=== PATIENT | female | born 1980 | race Caucasian/White ===

== ENCOUNTER 2016-11-01 17:11 | Emergency (ER) | payer OTHER ==
[2016-11-01 17:20] VITALS: BP 151/96; PULSE 57; TEMP 97.9; BMI 48.6
[2016-11-01] MEDS ORDERED: ONDANSETRON *ODT* 4 MG TABLET SL ONE (20:28)
--- NOTE | 2016-11-01 20:29 | PDOC ---
History of Present Illness - General Chief Complaint: Pain Stated Complaint: NOT FEELING WELL/preg/change in bp meds Time Seen by Provider: 11/01/16 19:33 - History of Present Illness Initial Comments: 11/01/16 20:24 CHIEF COMPLAINT: "don't feel well" HISTORY OF PRESENT ILLNESS: 35 year old F with history of HTN presents to ED with dizziness, nausea, sore throat, and discomfort to right ear. Patient states she was seen 2 days ago at [facility] and was just recently told she was . Patient is unsure when her last menstrual period was, he states "I skip all the time I think it was at the end of June" and she is unsure how many weeks she is . She states that she was told she was getting a blood test to tell her how many weeks along she was but she never found out after being discharged from [facility] patient states that her feet have been swollen, and notes that she was previously prescribed lisinopril and hydrochlorothiazide but after finding out she was medication was switched to labetalol. Since then her feet have felt more swollen she has felt more dizzy and nauseous. She denies any vomiting, diarrhea, fever or chills. PAST MEDICAL HISTORY: HTN FAMILY HISTORY: Denies SOCIAL HISTORY: Current smoker, 10 cigs daily. Denies alcohol, illicit drug use. SURGICAL HISTORY: 2 C-sections ALLERGIES: No known drug allergies REVIEW OF SYSTEMS General/Constitutional: Denies fever or chills. Denies weakness, weight change. HEENT: Denies change in vision. Denies ear pain or discharge. Denies sore throat. Cardiovascular: Denies chest pain or shortness of breath. Respiratory: Denies cough, wheezing, or hemoptysis. Gastrointestinal: Nausea. Denies vomiting, diarrhea or constipation. Denies rectal bleeding. Genitourinary: Denies dysuria, frequency, or change in urination. Musculoskeletal: Denies joint or muscle swelling or pain. Denies neck or back pain. Skin and breasts: Denies rash or easy bruising. Neurologic: Dizziness. Denies headache, vertigo, loss of consciousness, or loss of sensation. PHYSICAL EXAM General Appearance: Well-appearing, appropriately dressed. No apparent distress , no intoxication. HEENT: EOMI, PERRLA, normal ENT inspection, normal voice, TMs normal, pharynx normal. No conjunctival pallor. No photophobia, scleral icterus. Neck: Supple. Trachea midline. No tenderness, rigidity, carotid bruit, stridor , lymphadenopathy, or thyromegaly. Respiratory/Chest: Lungs CTAB. No shortness of breath, chest tenderness, respiratory distress, accessory muscle use. No crackles, rales, rhonchi, stridor , wheezing, dullness Cardiovascular: RRR. S1, S2. No JVD, murmur, bradycardia, tachycardia. Vascular Pulses: Dorsalis-Pedis (R): 2+, Dorsalis-Pedis (L): 2+ Gastrointestinal/Abdominal: Normal bowel sounds. Abdomen soft, non-distended. No tenderness or rebound tenderness. No organomegaly, pulsatile mass, guarding , hernia, hepatomegaly, splenomegaly. Lymphatic: No adenopathy, tenderness. Musculoskeletal/Extremities: Normal inspection. FROM of all extremities, normal capillary refill. Pelvis Stable. No CVA tenderness. No tenderness to extremities, pedal edema, swelling, erythema or deformity. Integumentary: Appropriate color, dry, warm. No cyanosis, erythema, jaundice or rash Neurologic: mooner II-XII intact. Fully oriented, alert. Appropriate mood/affect. Motor strength 5/5. No appreciable EOM palsy, facial droop or sensory deficit. 11/03/16 04:02 Past History - Past Medical History Allergies/Adverse Reactions: Allergies Allergy/AdvReac Type Severity Reaction Status Date / Time No Known Allergies Allergy Verified 11/01/16 17:15 Home Medications: Ambulatory Orders Ibuprofen [Motrin -] 600 mg PO TID #21 tablet 03/17/15 Lisinopril/Hydrochlorothiazide [Lisinopril-Hctz 10-12.5 mg Tab] 1 each PO DAILY 03/17/15 Ondansetron [Zofran Odt -] 4 mg SL TID PRN #21 od.tablet 11/01/16 GI Disorders: Yes (ACID REFLUX) HTN: Yes - Surgical History Cardiac Surgery: Yes - Psycho/Social/Smoking Cessation Hx Anxiety: Yes Suicidal Ideation: No Smoking History: Current every day smoker Have you smoked in the past 12 months: Yes Number of Cigarettes Smoked Daily: 10 Information on smoking cessation initiated: Yes 'Breaking Loose' booklet given: 11/01/16 Hx Alcohol Use: No Drug/Substance Use Hx: No Substance Use Type: None *Physical Exam - Vital Signs Last Vital Signs Temp Pulse Resp BP Pulse Ox 97.9 F 57 L 18 151/96 100 11/01/16 17:16 11/01/16 17:16 11/01/16 17:16 11/01/16 17:16 11/01/16 17:16 ED Treatment Course - LABORATORY CBC & Chemistry Diagram: 11/01/16 21:30 11/01/16 21:30 - RADIOLOGY Radiology Studies Ordered: Category Date Time Status TRANSVAGINAL ULTRASOUND US [US] Stat Ultrasound 11/01/16 20:15 Ordered Medical Decision Making - Medical Decision Making 11/01/16 23:11 35 year old F with history of HTN presents to ED with dizziness, nausea, sore throat, and discomfort to right ear. -CBC, CMP -UA, UCx -TV U/S -beta hCG beta hCG from [facility] labwork 93. Discussed with patient blood pressure (currently 151/96), patient states "i just remembered to take my third dose today, i just took it right now." beta hCG today 382. No IUP detected on U/S. Advised patient that she must return in 48 hours for repeat blood test to monitor progress of . Patient verbalized understanding and agrees to plan. *DC/Admit/Observation/Transfer Diagnosis at time of Disposition: Qualifiers: Weeks of gestation: unspecified Qualified Code(s): Z33.1 - state, incidental - Discharge Dispostion Disposition: HOME Condition at time of disposition: Stable Admit: No - Prescriptions Prescriptions: Ondansetron [Zofran Odt -] 4 mg SL TID PRN #21 od.tablet PRN Reason: Nausea And/Or Vomiting - Referrals Referrals: Laurent Harrison MD [Primary Care Provider] - - Patient Instructions Printed Discharge Instructions: Managing Symptoms of , Baby on the Way ? Keep Smoking at [place] Additional Instructions: You MUST return to the ED for a repeat test of your hormones in 48 hours to monitor the progression of your . If you experience heavy vaginal bleeding (more than one soaked pad per hour), severe abdominal pain to one side , persistent nausea/vomiting that is unrelieved by medication, shortness of breath, headache, or any new or worsening symptoms, please return to the ER immediately. - Post Discharge Activity
[2016-11-01] MEDS ORDERED: ONDANSETRON *ODT* 4 MG TABLET ONE (20:55)
[2016-11-01 21:21] LABS: URINE APPEARANCE CLEAR; URINE BILIRUBIN NEGATIVE (NEGATIVE); URINE COLOR YELLOW; URINE GLUCOSE (UA) NEGATIVE (NEGATIVE); URINE KETONE NEGATIVE (NEGATIVE); URINE LEUK ESTERASE NEGATIVE (NEGATIVE); URINE NITRITE NEGATIVE (NEGATIVE); URINE PROTEIN NEGATIVE (NEGATIVE); URINE UROBILINOGEN NEGATIVE E.U./dl (0.2-1.0)
[2016-11-01 21:23] LABS: URINE BLOOD 1+ (NEGATIVE)
[2016-11-01 21:24] LABS: URINE BACTERIA FEW /hpf (NONE SEEN); URINE MUCUS RARE; URINE RBC 2 /hpf (0-3); URINE WBC 2 /hpf (3-5)
[2016-11-01 21:36] LABS: BASOPHIL 3.6 % (0-2.0); EOSINOPHIL 2.1 % (0-4.5); MCH 25.7 pg (25.7-33.7); MEAN CELL VOLUME 80.3 fl (80-96); MEAN PLT VOLUME 8.8 fl (7.5-11.1); NEUTROPHILS 63.6 % (42.8-82.8); PLATELET COUNT 276 K/MM3 (134-434); RDW 14.3 % (11.6-15.6); WHITE BLOOD COUNT 11.9 K/mm3 (4.0-10.0)
[2016-11-01 22:38] LABS: ALBUMIN 3.3 g/dl (3.4-5.0); ANION GAP 8 (8-16); CALCIUM 8.5 mg/dL (8.5-10.1); CO2 26 mmol/L (21-32); GLUCOSE,RANDOM 75 mg/dL (74-106)
[2016-11-01 22:44] LABS: ALK PHOS 98 U/L (45-117); BILIRUBIN,TOTAL 0.4 mg/dL (0.2-1.0); CREATININE 0.7 mg/dL (0.55-1.02); SGOT/AST 9 U/L (15-37); SGPT/ALT 20 U/L (12-78); TOT PROT 7.1 g/dl (6.4-8.2)
== END 2016-11-01 23:21 | disposition home or self-care (01) ==
LOC: JER 17:11
DX: O16.9 Unspecified maternal hypertension, unspecified trimester (principal); O34.80 Maternal care for other abnormalities of pelvic organs, unspecified trimester; N83.291 Other ovarian cyst, right side; Z3A.00 Weeks of gestation of pregnancy not specified
CPT/HCPCS: 36415; 76817-TC; 80053; 81003; 81015; 84702; 85025; 87086; 99283-25

== ENCOUNTER 2016-11-04 18:33 | Emergency (ER) | payer OTHER ==
[2016-11-04 18:45] VITALS: BP 132/75; PULSE 65; TEMP 97.7; BMI 51.7
--- NOTE | 2016-11-04 18:53 | PDOC ---
History of Present Illness - General Chief Complaint[place] [facility] [place] Complaint: REVISIT, BLOODWORK Time Seen by Provider: 11/04/16 18:51 History Source: Patient - History of Present Illness Timing/Duration: other Associated Symptoms: denies: fever/chills, nausea/vomiting Past History - Past Medical History Allergies/Adverse Reactions: Allergies Allergy/AdvReac Type Severity Reaction Status Date / Time No Known Allergies Allergy Verified 11/04/16 18:41 Home Medications: Ambulatory Orders Ibuprofen [Motrin -] 600 mg PO TID #21 tablet 03/17/15 Lisinopril/Hydrochlorothiazide [Lisinopril-Hctz 10-12.5 mg Tab] 1 each PO DAILY 03/17/15 Ondansetron [Zofran Odt -] 4 mg SL TID PRN #21 od.tablet 11/01/16 GI Disorders: Yes (ACID REFLUX) HTN: Yes - Surgical History Cardiac Surgery: Yes - Psycho/Social/Smoking Cessation Hx Anxiety: Yes Suicidal Ideation: No Smoking History: Former smoker Have you smoked in the past 12 months: No Number of Cigarettes Smoked Daily: 10 Information on smoking cessation initiated: No 'Breaking Loose' booklet given: 11/01/16 Hx Alcohol Use: No Drug/Substance Use Hx: No Substance Use Type: None Review of Systems - Review of Systems Constitutional: No: Chills, Fever ABD/GI: No: Nausea, Vomiting, Abdominal cramping : No: Dysuria *Physical Exam - Vital Signs Last Vital Signs Temp Pulse Resp BP Pulse Ox 97.7 F 65 19 132/75 100 11/04/16 18:42 11/04/16 18:42 11/04/16 18:42 11/04/16 18:42 11/04/16 18:42 - Physical Exam General Appearance: Yes: Appropriately Dressed. No: Apparent Distress HEENT: positive: Normal Voice Neck: positive: Supple Respiratory/Chest: negative: Respiratory Distress Gastrointestinal/Abdominal: positive: Soft. negative: Tender Integumentary: positive: Dry, Warm Neurologic: positive: Fully Oriented, Alert, Normal Mood/Affect Medical Decision Making - Medical Decision Making 11/04/16 18:53 35-year-old female, morbidly obesed, HTN on labetalol, , unsure how far along she is but states last period was sometime in June, was told she was at [facility] 6 days ago w/ beta in the s, was seen in ED at [facility] 4 days ago for URI symptoms. Beta hCG was 382 with of unknown location on ultrasound. Patient was told to return today for repeat evaluation. Patient reports no vaginal bleeding, abdominal pain, dysuria, nausea, vomiting at this time. States she currently does not have a REMEDIATION CONSULTANT because her insurance is currently inactive but in the process of getting reactivated as per patient. Pt well fernando and stable. Beta pending 11/04/16 18:59 11/04/16 20:39 Beta 610 today which signifies an ab/nl . Will rpt US today 11/04/16 22:35 US today reveals an IUP (ges+yolk sac) @ 5 weeks, no cardiac activity as of yet. Pt discharged to f/u with retail business manager next week *DC/Admit/Observation/Transfer Diagnosis at time of Disposition: Early stage of - Discharge Dispostion Disposition: HOME Condition at time of disposition: Good - Patient Instructions Additional Instructions: Please follow up with your REMEDIATION CONSULTANT early next week. Your beta was in the 600s today. Your US shows an intrauterine (ges sac + yolk sac) at 5 weeks, There is no heart activity as of yet
== END 2016-11-04 22:36 | disposition home or self-care (01) ==
LOC: JERFT 18:33
DX: Z32.01 Encounter for pregnancy test, result positive (principal); O16.1 Unspecified maternal hypertension, first trimester; O99.211 Obesity complicating pregnancy, first trimester; E66.01 Morbid (severe) obesity due to excess calories; Z68.43 Body mass index [BMI] 50.0-59.9, adult; Z3A.01 Less than 8 weeks gestation of pregnancy
CPT/HCPCS: 36415; 76801-TC; 76817-TC; 84702; 99281-25

== ENCOUNTER 2017-11-20 19:19 | Emergency (ER) | payer OTHER ==
[2017-11-20 20:27] VITALS: BP 154/81; PULSE 64; TEMP 98.1; BMI 59.5
--- NOTE | 2017-11-20 22:46 | PDOC ---
History of Present Illness - General Chief Complaint: Pain Stated Complaint: SINUS INFECTION Time Seen by Provider: 11/20/17 21:44 History Source: Patient - History of Present Illness Initial Comments: 11/20/17 22:42 36 year old female with facial pain that is intermittent for several days s/p amoxicillin for sinus infection, patient reports feeling nasal congestion and ear fullness . denies URI symptoms, fever/ chills. patient has a history of hypertension and GERD> currently on labetalol and zantac Past History - Past Medical History Allergies/Adverse Reactions: Allergies Allergy/AdvReac Type Severity Reaction Status Date / Time No Known Allergies Allergy Verified 11/20/17 20:23 Home Medications: Ambulatory Orders Ibuprofen [Motrin -] 600 mg PO TID #21 tablet 03/17/15 Lisinopril/Hydrochlorothiazide [Lisinopril-Hctz 10-12.5 mg Tab] 1 each PO DAILY 03/17/15 Ondansetron [Zofran Odt -] 4 mg SL TID PRN #21 od.tablet 11/01/16 Fluticasone Prop 0.05% Nasal [Flonase -] 1 - 2 spray NS DAILY #1 spray.pump 08/27 COPD: No GI Disorders: Yes (ACID REFLUX) HTN: Yes - Surgical History Cardiac Surgery: Yes - Suicide/Smoking/Psychosocial Hx Smoking History: Never smoked Have you smoked in the past 12 months: No Number of Cigarettes Smoked Daily: 10 Information on smoking cessation initiated: No 'Breaking Loose' booklet given: 11/01/16 Hx Alcohol Use: No Drug/Substance Use Hx: No Substance Use Type: None *Physical Exam - Vital Signs Last Vital Signs Temp Pulse Resp BP Pulse Ox 98.1 F 64 20 154/81 99 11/20/17 20:24 11/20/17 20:24 11/20/17 20:24 11/20/17 20:24 11/20/17 20:24 - Physical Exam General Appearance: Yes: Appropriately Dressed HEENT: positive: Other (no maxillary/ frontal sinus tenderness notes,. TM dull ) Respiratory/Chest: positive: Lungs Clear, Normal Breath Sounds Gastrointestinal/Abdominal: positive: Normal Bowel Sounds, Soft Neurologic: positive: Fully Oriented, Alert *DC/Admit/Observation/Transfer Diagnosis at time of Disposition: Sinusitis chronic, frontal - Discharge Dispostion Disposition: HOME - Prescriptions Prescriptions: Fluticasone Prop 0.05% Nasal [Flonase -] 1 - 2 spray NS DAILY #1 spray.pump - Referrals Referrals: Coral Galvan MD [Primary Care Provider] - Marcos Bone MD [Staff Physician] - Call tomorrow - Patient Instructions Printed Discharge Instructions: Sinus Headache, Sinusitis (Alternative Therapy) Additional Instructions: use flonase as prescribed to both nares. you may use ibuprofen every 6 hours as needed for pain follow up with ENT as soon as possible.. - Post Discharge Activity
== END 2017-11-20 23:12 | disposition home or self-care (01) ==
LOC: JERFT 19:19 → JER 19:19
DX: J32.1 Chronic frontal sinusitis (principal); I10 Essential (primary) hypertension; K21.9 Gastro-esophageal reflux disease without esophagitis
CPT/HCPCS: 99281-25

== ENCOUNTER 2017-11-21 16:54 | Emergency (ER) | payer OTHER ==
[2017-11-21 17:06] VITALS: BP 147/80; PULSE 62; TEMP 97.5; BMI 59.5
[2017-11-21] MEDS ORDERED: PANTOPRAZOLE 40 MG TABLET (FP) PO ONE (17:08)
--- NOTE | 2017-11-21 17:08 | PDOC ---
Rapid Medical Evaluation Time Seen by Provider: 11/21/17 17:03 Medical Evaluation: Allergies Allergy/AdvReac Type Severity Reaction Status Date / Time No Known Allergies Allergy Verified 11/20/17 20:23 11/21/17 17:03 The patient presents with a chief complaint of: [Intermittent Abdominal pain, burping."Thinks its her reflux." ] I have performed a brief in-person evaluation of this patient. Pertinent physical exam findings: vss, [Lungs clear, obese, Abdomen is soft. nontender upon arrival. ] I have ordered the following: Protonix PO The patient will proceed to the ED for further evaluation. 11/21/17 17:07 Discharge Disposition - Diagnosis Reflux - Referrals - Patient Instructions - Post Discharge Activity
[2017-11-21] MEDS ORDERED: MAG HYDROX/AL HYDROX/SIMETH 30 ML UNIT-DOSE CUP PO ONE (17:47)
[2017-11-21] MEDS ORDERED: FAMOTIDINE 20 MG/50 ML IVPB 20 MG/50 ML MG IVPB ONE ×2 (18:00→18:02)
[2017-11-21] MEDS ORDERED: MAG HYDROX/AL HYDROX/SIMETH 30 ML UNIT-DOSE CUP ONE (18:02)
--- NOTE | 2017-11-21 18:19 | PDOC ---
History of Present Illness - General Chief Complaint: Pain, Acute Stated Complaint: STOMACH PAIN Time Seen by Provider: 11/21/17 17:03 - History of Present Illness Initial Comments: 11/21/17 18:10 The patient is a 36 year old female with a history of obesity, HTN, GERD who presents for evaluation of epigastric abdominal pain and chest pain. The patient states that she has been having worsening intermittent burning chest pain over the past week with associated burning epigastric abdominal pain. She notes that it feels similar to her GERD and states that she recently had stopped taking zantac with worsening symptoms. She states that she has a family history of heart issues and presents to the ED today due to concerns that her symptoms could be related to her heart. She denies fevers, chills, SOB , nausea, vomiting, or changes with urination or bowel movements. Past History - Past Medical History Allergies/Adverse Reactions: Allergies Allergy/AdvReac Type Severity Reaction Status Date / Time No Known Allergies Allergy Verified 11/21/17 17:06 Home Medications: Ambulatory Orders Ibuprofen [Motrin -] 600 mg PO TID #21 tablet 03/17/15 Lisinopril/Hydrochlorothiazide [Lisinopril-Hctz 10-12.5 mg Tab] 1 each PO DAILY 03/17/15 Ondansetron [Zofran Odt -] 4 mg SL TID PRN #21 od.tablet 11/01/16 Fluticasone Prop 0.05% Nasal [Flonase -] 1 - 2 spray NS DAILY #1 spray.pump 08/27 COPD: No GI Disorders: Yes (ACID REFLUX) HTN: Yes - Surgical History Cardiac Surgery: Yes - Suicide/Smoking/Psychosocial Hx Smoking History: Never smoked Have you smoked in the past 12 months: No Number of Cigarettes Smoked Daily: 10 'Breaking Loose' booklet given: 11/01/16 Hx Alcohol Use: No Drug/Substance Use Hx: No Substance Use Type: None Review of Systems - Review of Systems Comments:: 11/21/17 18:12 Constitutional: No fevers, chills, fatigue, malaise HEENT: No Rhinorrhea, nasal congestion, visual changes Cardiovascular: Chest pain. No syncope, palpitations, lightheadedness Respiratory: No Cough, SOB, Hemoptysis, Gastrointestinal: Epigastric abdominal pain. No Nausea, Vomiting, Constipation , Diarrhea, Melena Genitourinary: No Dysuria, Frequency, Urgency, Hesitancy, Hematuria, Flank pain Musculoskeletal: No Myalgia, arthralgia Skin: No rashes, itching, bruising, pallor Neurologic: No Headache, Dizziness, Numbness, Weakness, or Tingling Psychiatric: No Hallucinations. No SI or HI *Physical Exam - Vital Signs Last Vital Signs Temp Pulse Resp BP Pulse Ox 97.5 F L 62 16 147/80 100 11/21/17 17:03 11/21/17 17:03 11/21/17 17:03 11/21/17 17:03 11/21/17 17:03 - Physical Exam Comments: 11/21/17 18:13 General Appearance: Nourished. Obese. No Apparent Distress HEENT: EOMI, HOANG. No Pharyngeal Erythema, Tonsillar Exudate, Tonsillar Erythema Neck: No Cervical Lymphadenopathy Respiratory/Chest: Lungs Clear, Normal Breath Sounds. No Crackles, Rales, Rhonchi, Wheezing Cardiovascular: Regular Rhythm, Regular Rate. No Murmur, Gallops, Rubs Gastrointestinal/Abdominal: Normal Bowel Sounds, Soft. No Guarding, Rebound, Tenderness Musculoskeletal: No CVA Tenderness Extremity: Normal Capillary Refill Integumentary: Normal Color, Dry, Warm Neurologic: Fully Oriented, Alert, Normal Mood/Affect, Normal Response, Heart Score/ECG Review #1 ECG reviewed & interpreted by me at: 18:26 General ECG Interpretation: Sinus Rhythm, Normal Rate, Normal Intervals, No acute ischemic changes ED Treatment Course - LABORATORY CBC & Chemistry Diagram: 11/21/17 18:20 11/21/17 18:20 - Medications Given in the ED: ED Medications Discontinued Medications Generic Name Dose Route Start Last Admin Trade Name Freq PRN Reason Stop Dose Admin Pantoprazole Sodium 40 mg 11/21/17 17:08 11/21/17 17:41 Protonix - PO 11/21/17 17:09 Not Given ONCE ONE Medical Decision Making - Medical Decision Making 11/21/17 18:13 The patient is a 36 year old female with a history of obesity, HTN, GERD who presents for evaluation of epigastric abdominal pain and chest pain. Differential includes but is not limited to: GERD, Gastritis, ACS, infectious, metabolic derangement. Given the patient's history it is likely the patient's symptoms are due to GERD. However we will obtain a cbc, cmp, lipase, troponin to evaluate further. We will continue to monitor and reassess. 11/21/17 19:48 CBC, cmp, lipase, troponin are unremarkable. The patient notes that she has a follow up appointment with her primary care provider tomorrow and currently denies any symptoms. We are comfortable discharging the patient home at this time with primary care provider follow up. We discussed the results and the plan with the patient who voiced understanding and is agreeable with the plan. *DC/Admit/Observation/Transfer Diagnosis at time of Disposition: Reflux - Discharge Dispostion Disposition: HOME Condition at time of disposition: Improved Admit: No - Referrals Referrals: Coral Galvan MD [Primary Care Provider] - - Patient Instructions Printed Discharge Instructions: DI for Gastroesophageal Reflux Disease (GERD) Additional Instructions: Please return to the ER if you experience concerning or worsening symptoms including worsening chest pain, difficulty breathing or vomiting. Your lab results were normal here in the ER. Your symptoms are likely due to your reflux disease. It is important that you keep your follow up appointment with your primary care provider tomorrow to further discuss your symptoms. - Post Discharge Activity
--- NOTE | 2017-11-21 18:21 | PDOC ---
Attending Attestation - Resident Resident Name: Peter Lima - ED Attending Attestation I have performed the following: I have examined & evaluated the patient, The case was reviewed & discussed with the resident, I agree w/resident's findings & plan, Exceptions are as noted <Olga Fernandez - Last Filed: 11/21/17 18:21> - HPI HPI: 11/21/17 18:22 The patient is a 36 year female, with a significant past medical history of GERD and hypertension, who presents to the emergency department with intermittent burning chest pain for approximately 1 week. The patient reports her pain radiates into her back and her jaw. She reports associated epigastric abdominal pain, which she describes as a cramping. She denies any palpitations, shortness of breath, diaphoresis, or lower extremity edema. Patient reports presenting to her PCP last week with similar symptoms, who reported the patients symptoms were musculoskeletal or related to her GERD. Patient reports coming in today out of concern her symptoms have to do with her heart, because she has a long family Cardiac history(MotherMIs. CAD, HTN, DM). Patient reports her symptoms are worsening, however, she has been drinking a lot more coffee lately. Patient reports she was in the ED yesterday with a sinus infection. She denies any recent fever, chills, headache, or dizziness. She denies any nausea or vomiting. Patient denies any recent travel or sick contacts. Allergies: NKDA Past Surgical History: Section Social History: Former smoker. No ETOH or recreational drug use. - Physicial Exam PE: 11/21/17 18:22 GENERAL: Well-appearing, well-nourished. No apparent distress. Obese. HEENT: Normocephalic, atraumatic. PERRL, EOM intact. CARDIOVASCULAR: Normal S1, S2. Regular rate and rhythm. No murmurs, rubs, or gallops PULMONARY: Clear to auscultation bilaterally. ABDOMEN: Soft, non-distended, non-tender. EXTREMITIES: Normal ROM in all four extremities. No gross deformities. No pitting edema SKIN: Warm, dry. No rash NEUROLOGICAL: No focal neurological deficits. - Medical Decision Making 11/21/17 18:22 Documentation prepared by Srini Truong, acting as medical scientist for Olga Fernandez MD. <Srini Truong - Last Filed: 11/21/17 18:22>
[2017-11-21 18:27] LABS: BASO % 0.7 % (0-2.0); EOS % 0.8 % (0-4.5); HEMATOCRIT 40.9 % (32.4-45.2); HEMOGLOBIN 13.2 GM/dL (10.7-15.3); LYMPH % 21.4 % (8-40); MCH 26.2 pg (25.7-33.7); MCHC 32.2 g/dl (32.0-36.0); MEAN CELL VOLUME 81.1 fl (80-96); MEAN PLT VOLUME 8.9 fl (7.5-11.1); MONO % 7.1 % (3.8-10.2); PLATELET COUNT 286 K/MM3 (134-434); RBC 5.05 M/mm3 (3.60-5.2); RDW 13.9 % (11.6-15.6); WHITE BLOOD COUNT 9.6 K/mm3 (4.0-10.0)
[2017-11-21 18:51] LABS: ALBUMIN 3.7 g/dl (3.4-5.0); ANION GAP 8 (8-16); BILIRUBIN,TOTAL 0.6 mg/dL (0.2-1.0); BLOOD UREA NITROGEN 12 mg/dL (7-18); CALCIUM 9.3 mg/dL (8.5-10.1); CHLORIDE 104 mmol/L (98-107); CO2 27 mmol/L (21-32); CREATININE 0.9 mg/dL (0.55-1.02); GLUCOSE,RANDOM 89 mg/dL (74-106); POTASSIUM 3.9 mmol/L (3.5-5.1); SGOT/AST 14 U/L (15-37); SGPT/ALT 31 U/L (12-78); SODIUM 139 mmol/L (136-145); TOT PROT 7.8 g/dl (6.4-8.2)
[2017-11-21 18:54] LABS: ALK PHOS 136 U/L (45-117)
--- NOTE | 2017-11-22 16:45 | EKG ---
Test Reason : Blood Pressure : / mmHG Vent. Rate : 055 BPM Atrial Rate : 055 BPM P-R Int : 178 ms QRS Dur : 088 ms QT Int : 406 ms P-R-T Axes : 040 023 033 degrees QTc Int : 388 ms SINUS BRADYCARDIA OTHERWISE NORMAL ECG NO PREVIOUS ECGS AVAILABLE Confirmed by MD Alberto, Puma ([id number]) on 11/22/2017 4:44:53 PM Referred By: Confirmed By:Puma Dominguez MD
== END 2017-11-21 19:26 | disposition home or self-care (01) ==
LOC: JER 16:54
PROC: 3E033GC Introduction of Other Therapeutic Substance into Peripheral Vein, Percutaneous Approach (ICD-10-PCS; principal; 2017-11-21)
DX: K21.9 Gastro-esophageal reflux disease without esophagitis (principal); R07.89 Other chest pain; I10 Essential (primary) hypertension
CPT/HCPCS: 36415; 80053; 82550; 83690; 84484; 85025; 93005; 93010; 96374; 99282-25

== ENCOUNTER 2018-02-18 10:05 | Emergency (ER) | payer OTHER ==
[2018-02-18 10:15] VITALS: PULSE 78; TEMP 98.7; BMI 59.1
[2018-02-18] MEDS ORDERED: FAMOTIDINE 20 MG TABLET PO ONE (10:38)
[2018-02-18] MEDS ORDERED: FAMOTIDINE 20 MG TABLET ONE (10:40)
[2018-02-18] MEDS ORDERED: MAG HYDROX/AL HYDROX/SIMETH 30 ML UNIT-DOSE CUP ONE (10:41)
[2018-02-18] MEDS ORDERED: LIDOCAINE VISCOUS 2% ORAL/TOP 20 ML UNIT-DOSE CUP ONE (10:41)
[2018-02-18] MEDS ORDERED: MAG HYDROX/AL HYDROX/SIMETH 30 ML UNIT-DOSE CUP PO ONE (10:44)
--- NOTE | 2018-02-18 10:44 | PDOC ---
History of Present Illness - General Chief Complaint: Pain Stated Complaint: BURNING ABD PAIN Time Seen by Provider: 02/18/18 10:27 History Source: Patient Exam Limitations: No Limitations - History of Present Illness Initial Comments: 37-year-old female with history of reflux and obesity here today complaining of burning epigastric abdominal pain. Patient states symptoms started 4 days ago. She has been on amoxicillin for recent sinus infection which she finished yesterday. Denies vomiting, fever chills or recent travel no urinary complaints. Abdominal pain is burning no radiation no dysuria or frequency only surgical history is a prior Past History - Past Medical History Allergies/Adverse Reactions: Allergies Allergy/AdvReac Type Severity Reaction Status Date / Time No Known Allergies Allergy Verified 02/18/18 10:09 Home Medications: Ambulatory Orders Labetalol HCl 100 mg PO DAILY 02/18/18 Medroxyprogesterone Acetate [Provera] 10 mg PO ASDIR 02/18/18 Ranitidine [Zantac -] 300 mg PO BID 02/18/18 COPD: No GI Disorders: Yes (GERD) HTN: Yes - Surgical History Cardiac Surgery: Yes - Suicide/Smoking/Psychosocial Hx Smoking History: Former smoker Have you smoked in the past 12 months: No Number of Cigarettes Smoked Daily: 10 Information on smoking cessation initiated: No 'Breaking Loose' booklet given: 11/01/16 Hx Alcohol Use: No Drug/Substance Use Hx: No Substance Use Type: None Review of Systems - Review of Systems Constitutional: No: Chills, Diaphoresis, Fever HEENTM: No: Eye Pain Respiratory: No: Cough Cardiac (ROS): No: Chest Pain, Edema ABD/GI: Yes: Nausea, Indigestion : No: Burning, Dysuria, Discharge Integumentary: No: Bruising, Change in Color All Other Systems: Reviewed and Negative *Physical Exam - Vital Signs Last Vital Signs Temp Pulse Resp BP Pulse Ox 98.7 F 78 18 144/87 97 02/18/18 10:05 02/18/18 10:05 02/18/18 10:05 02/18/18 10:05 02/18/18 10:05 - Physical Exam General Appearance: Yes: Appropriately Dressed HEENT: positive: Normal ENT Inspection Neck: positive: Trachea midline Respiratory/Chest: positive: Lungs Clear, Normal Breath Sounds Cardiovascular: positive: Regular Rhythm, Regular Rate, S1, S2 Gastrointestinal/Abdominal: positive: Normal Bowel Sounds, Flat, Soft. negative : Tender Musculoskeletal: positive: Normal Inspection Integumentary: positive: Normal Color, Dry, Warm Neurologic: positive: Alert, Normal Mood/Affect Medical Decision Making - Medical Decision Making 02/18/18 10:43 37-year-old female here with epigastric pain. Abdominal exam is nontender. Differential includes reflux gastritis or . Plan antacids antinausea medication and UCG likely due to patient's use of recent antibiotics likely DC home with GI follow-up 02/18/18 12:07 pt feels improved. tolerating liquids. dc home. given referral for GI followup. *DC/Admit/Observation/Transfer Diagnosis at time of Disposition: GERD (gastroesophageal reflux disease) - Discharge Dispostion Disposition: HOME Condition at time of disposition: Improved - Referrals Referrals: Coral Galvan MD [Primary Care Provider] - Gonsalo Banks MD [Staff Physician] - Donnie Snowden MD [Staff Physician] - Adam Bahena MD [Staff Physician] - - Patient Instructions Printed Discharge Instructions: Heartburn -- Overview Additional Instructions: you should take pepcid daily as you have been. you should try chewable pepcid for acute discomfort. you can also take maalox as directed for discomfort. you should start protonix 20 mg daily. follow up with a hospice nurse. if you do not have one you can schedule with Dr Díaz - Post Discharge Activity
[2018-02-18] MEDS ORDERED: LIDOCAINE VISCOUS 2% ORAL/TOP 20 ML UNIT-DOSE CUP MM ONE (10:46)
[2018-02-18] MEDS ORDERED: ONDANSETRON *ODT* 4 MG TABLET SL ONE (11:37)
[2018-02-18] MEDS ORDERED: ONDANSETRON *ODT* 4 MG TABLET ONE (11:38)
[2018-02-18 12:50] VITALS: BP 137/52
== END 2018-02-18 12:30 | disposition home or self-care (01) ==
LOC: FER 10:05
DX: K21.9 Gastro-esophageal reflux disease without esophagitis (principal); Z87.891 Personal history of nicotine dependence; I10 Essential (primary) hypertension
CPT/HCPCS: 99283-25; Q0162

== ENCOUNTER 2018-09-19 18:47 | Emergency (ER) | payer OTHER ==
[2018-09-19 18:56] VITALS: PULSE 75; TEMP 98.7; BMI 61.4
--- NOTE | 2018-09-19 19:20 | PDOC ---
History of Present Illness - History of Present Illness Initial Comments: 09/19/18 19:35 HPI: The patient is a 37 year old female, with a significant past medical history of GERD and hypertension, who presents to the emergency department with, elevated blood pressure. As per patient, after cleaning she took her Labetalol 100mg and tested her blood pressure observing a systolic reading within the 170s. She endorses checking her blood pressure multiple times after the reading with continuous elevated readings with associated mild chest tightness, prompting her visit to the ER. She notes that her aircraft navigator Dr. Mcclellan changed her blood pressure medication from Labetalol 100mg to 50mg with Hyzaar but, she has not been compliant with her new medications because she did not pick them up from the pharmacy. She denies recent fevers, chills, headache or dizziness. She denies recent nausea, vomit, diarrhea or constipation. She denies recent dysuria, frequency, urgency or hematuria. She denies recent chest pain or shortness of breath. PAST MEDICAL HISTORY: no significant history PAST SURGICAL HISTORY: no significant history FAMILY HISTORY: no pertinent history SOCIAL HISTORY: Pt lives with family and is employed. MEDICATIONS: reviewed ALLERGIES: As per nursing notes ROS: General: No fevers or chills, no weakness, no weight loss HEENT: No change in vision. No sore throat,. No ear pain CardioVascular: No chest pain or shortness of breath Respiratory:No cough, or wheezing. Gastrointestinal: no nausea, vomiting, diarrhea or constipation, No rectal bleeding Genitourinary: No dysuria, hematuria, or frequency Musculoskeletal: No joint or muscle pain or swelling Neurologic: No headache, vertigo, dizziness or loss of consciousness Psychiatric: nor depression Skin: No rashes or easy bruising Endocrine: no increased thirst or abnormal weight change Allergic: no skin or latex allergy All other systems reviewed and normal Physical Exam: General: Well-nourished well-developed individual, no acute distress HEENT: Throat: Normal, tonsils normal, no erythema or exudate Neck: Supple, no meningeal signs, no lymphadenopathy Eyes::Pupils equal reactive and round, extraocular motion intact Chest: Nontender to palpation Cardiac: S1-S2 normal, regular rate and rhythm, no murmurs rubs or gallops Respiratory: Lungs clear to auscultation bilateral Extremities: Warm, dry, no cyanosis, clubbing, or edema Skin: No rashes Neuro: Alert and oriented x3, nonfocal exam, grossly intact, normal gait Psych: Normal mood and affect <Marla Ceja - Last Filed: 09/19/18 19:35> - General History Source: Patient Exam Limitations: No Limitations - History of Present Illness Initial Comments: 09/19/18 19:43 A portion of this note was documented by scribe services under my direction. I have reviewed the details of the note, within reason, and agree with the documentation with the following case summary and management plan written by me. Patient treated in the ED. Nursing notes are reviewed and incorporated into the medical decision-making. Vital signs reviewed. Assessment and plan: This is a 37-year-old morbidly obese female who comes in complaining of elevated blood pressure. Patient was recently started on a second medication for her blood pressure and to get this evening and it was elevated. Patient became anxious and began to take a multiple times and then came in for evaluation. Patient given her new medication losartan, patient refused an antianxiety medication. Patient was complaining of some intermittent chest tightness as well so an EKG was done. EKG showed normal sinus rhythm at a rate of 78, normal intervals no acute ST-T wave changes normal EKG <Ashish Culp I - Last Filed: 09/19/18 20:20> - General Chief Complaint: Blood Pressure Problem Stated Complaint: WANTS TO BE EVALUATED BLOOD PRESSURE ELEVATED AT Time Seen by Provider: 09/19/18 19:11 Past History <Marla Ceja - Last Filed: 09/19/18 19:35> - Past Medical History COPD: No GI Disorders: Yes (GERD) HTN: Yes - Surgical History Cardiac Surgery: Yes - Suicide/Smoking/Psychosocial Hx Smoking History: Former smoker Have you smoked in the past 12 months: No Number of Cigarettes Smoked Daily: 10 If you are a former smoker, when did you quit?: 2 YEARS Information on smoking cessation initiated: No 'Breaking Loose' booklet given: 11/01/16 Hx Alcohol Use: Yes (RARE) Drug/Substance Use Hx: No Substance Use Type: None <Ashish Culp I - Last Filed: 09/19/18 20:20> - Past Medical History Allergies/Adverse Reactions: Allergies Allergy/AdvReac Type Severity Reaction Status Date / Time No Known Allergies Allergy Verified 09/19/18 18:50 Home Medications: Ambulatory Orders Labetalol HCl 100 mg PO BID 02/18/18 *Physical Exam - Vital Signs Last Vital Signs Temp Pulse Resp BP Pulse Ox 98.7 F 75 20 174/82 H 100 09/19/18 18:49 09/19/18 18:49 09/19/18 18:49 09/19/18 18:49 09/19/18 18:49 <Marla Ceja - Last Filed: 09/19/18 19:35> - Vital Signs Last Vital Signs Temp Pulse Resp BP Pulse Ox 98.7 F 75 20 174/82 H 100 09/19/18 18:49 09/19/18 18:49 09/19/18 18:49 09/19/18 18:49 09/19/18 18:49 <Ashish Cupl I - Last Filed: 09/19/18 20:20> Moderate Sedation - Procedure Monitoring Vital Signs: Procedure Monitoring Vital Signs Temperature 98.7 F 09/19/18 18:49 Pulse Rate 75 09/19/18 18:49 Respiratory Rate 20 09/19/18 18:49 Blood Pressure 174/82 H 09/19/18 18:49 O2 Sat by Pulse Oximetry (%) 100 09/19/18 18:49 <Marla Ceja - Last Filed: 09/19/18 19:35> - Procedure Monitoring Vital Signs: Procedure Monitoring Vital Signs Temperature 98.7 F 09/19/18 18:49 Pulse Rate 75 09/19/18 18:49 Respiratory Rate 20 09/19/18 18:49 Blood Pressure 174/82 H 09/19/18 18:49 O2 Sat by Pulse Oximetry (%) 100 09/19/18 18:49 <Ashish Culp I - Last Filed: 09/19/18 20:20> *DC/Admit/Observation/Transfer - Attestations Scribe Attestion: 09/19/18 19:36 Documentation prepared by Marla Ceja, acting as medical director/head team physician for Ashish Culp MD. <Marla Ceja Last Filed: 09/19/18 19:35> - Discharge Dispostion Decision to Admit order: No <MarilynjanisAshish Petersen - Last Filed: 09/19/18 20:20> Diagnosis at time of Disposition: Essential hypertension - Discharge Dispostion Disposition: HOME Condition at time of disposition: Stable - Patient Instructions Printed Discharge Instructions: DI for High Blood Pressure, How to Monitor Your Blood Pressure at Home Additional Instructions: Take your blood pressure medications as prescribed starting tomorrow morning. Return to the emergency department immediately with ANY new, persistent or worsening symptoms. Continue any medications as previously prescribed by your physician. You should follow up with your primary doctor as soon as possible regarding today's emergency department visit. . Please make sure your doctor reviews the results of your emergency evaluation. Thank you for coming to the Emergency Department today for your care. It was a pleasure to see you today. Please note that your evaluation is INCOMPLETE until you follow-up with your doctor.
[2018-09-19] MEDS ORDERED: LOSARTAN 50MG/HCTZ 12.5MG 1 TAB (FP) PO ONE (19:22)
[2018-09-19] MEDS ORDERED: ALPRAZolam 1 MG TABLET PO PRN (19:23)
[2018-09-19] MEDS ORDERED: ALPRAZolam 0.25 MG TABLET ONE (19:27)
[2018-09-19 20:30] VITALS: BP 166/99
--- NOTE | 2018-09-20 09:34 | EKG ---
Test Reason : Blood Pressure : / mmHG Vent. Rate : 078 BPM Atrial Rate : 078 BPM P-R Int : 174 ms QRS Dur : 088 ms QT Int : 356 ms P-R-T Axes : 053 031 036 degrees QTc Int : 405 ms NORMAL SINUS RHYTHM NORMAL ECG WHEN COMPARED WITH ECG OF 21-NOV-2017 18:15, NO SIGNIFICANT CHANGE WAS FOUND Confirmed by JEREMY ANNA MD ([id number]) on 09/20/2018 9:33:50 AM Referred By: DR MEDEL Confirmed By:JEREMY ANNA MD
== END 2018-09-19 20:36 | disposition home or self-care (01) ==
LOC: FER 18:47
DX: I10 Essential (primary) hypertension (principal); Z87.891 Personal history of nicotine dependence; K21.9 Gastro-esophageal reflux disease without esophagitis
CPT/HCPCS: 93005; 99281-25

== ENCOUNTER 2018-11-07 21:10 | Emergency (ER) | payer OTHER ==
--- NOTE | 2018-11-07 22:33 | PDOC ---
History of Present Illness - General History Source: Patient Exam Limitations: No Limitations - History of Present Illness Initial Comments: 11/07/18 23:51 The patient is a 37 year old female, with a significant past medical history of HTN (Labetalol at 7pm then again at 11:30pm and her Losartan/HCTZ once a day) and GERD, who presents to the emergency department with, elevated blood pressure. Patient notes today her neck has been aching and she was not feeling well thus, she tested her blood pressure. She endorses a blood pressure reading of 163/103 then her blood pressure decreased minimally, prompting her arrival. She notes that she normally takes her blood pressure at night before bed. She denies recent fevers, chills, headache or dizziness. She denies recent nausea, vomit, diarrhea or constipation. She denies recent dysuria, frequency, urgency or hematuria. She denies recent chest pain or shortness of breath. Allergies: NKA Past surgical history: None reported. Social history: Nonsmoker. Denies EtOH use and recreational drug use. Primary Care Physician: Dr. Basil Galvan Heating And Air Conditioning Mechanic: Dr. Mcclellan \\ <Marla Ceja - Last Filed: 11/08/18 00:00> <Amarilis Porter - Last Filed: 11/08/18 04:56> - General Chief Complaint: Blood Pressure Problem Stated Complaint: HIGH BLOOD PRESSURE Time Seen by Provider: 11/07/18 22:01 Past History <Marla Ceja - Last Filed: 11/08/18 00:00> - Past Medical History COPD: No GI Disorders: Yes (GERD) HTN: Yes - Surgical History Cardiac Surgery: Yes - Suicide/Smoking/Psychosocial Hx Smoking History: Former smoker Have you smoked in the past 12 months: No Number of Cigarettes Smoked Daily: 10 If you are a former smoker, when did you quit?: 2 YEARS 'Breaking Loose' booklet given: 11/01/16 Hx Alcohol Use: Yes (RARE) Drug/Substance Use Hx: No Substance Use Type: None <Amarilis Porter - Last Filed: 11/08/18 04:56> - Past Medical History Allergies/Adverse Reactions: Allergies Allergy/AdvReac Type Severity Reaction Status Date / Time No Known Allergies Allergy Verified 11/07/18 22:58 Home Medications: Ambulatory Orders Labetalol HCl 100 mg PO BID 02/18/18 Losartan/Hydrochlorothiazide [Losartan-Hctz 50-12.5 mg Tab] 1 each PO DAILY Review of Systems - Review of Systems Able to Perform ROS?: Yes Comments:: 11/07/18 23:52 CONSTITUTIONAL: Present: Elevated blood pressure. Absent: fever, no chills, no fatigue EYES: Absent: visual changes ENT: Absent: ear pain, no sore throat CARDIOVASCULAR: Absent: chest pain, no palpitations RESPIRATORY: Absent: cough, no SOB GI: Absent: abdominal pain, no nausea, no vomiting, no constipation, no diarrhea GENITOURINARY: Absent: dysuria, no frequency, no hematuria MUSKULOSKELETAL: Absent: back pain, no arthralgia, no myalgia SKIN: Absent: rash NEURO: Absent: headache All Other Systems: Reviewed and Negative <Marla Ceja - Last Filed: 11/08/18 00:00> *Physical Exam - Vital Signs Last Vital Signs Temp Pulse Resp BP Pulse Ox 98.4 F 82 16 153/82 100 11/07/18 22:59 11/07/18 22:59 11/07/18 22:59 11/07/18 22:59 11/07/18 22:59 - Physical Exam Comments: 11/07/18 23:52 GENERAL: Morbidly obese. The patient is awake, alert, and fully oriented, in no acute distress. HEAD: Normal with no signs of trauma. EYES: Pupils equal, round and reactive to light, extraocular movements intact, sclera anicteric, conjunctiva clear with no pallor. ENT: Ears normal, nares patent, oropharynx clear without exudates. Moist mucous membranes. NECK: Normal range of motion, supple without lymphadenopathy, JVD, or masses. LUNGS: Breath sounds equal, clear to auscultation bilaterally. No wheeze/ crackles. HEART: Regular rate and rhythm, normal S1 and S2 without murmur or rub. ABDOMEN: Soft/nontender/nondistended. BS wnl. No guarding or rebound. No palpable masses. No hepatosplenomegaly. EXTREMITIES: Normal range of motion, no edema. No clubbing or cyanosis. No cords, erythema, or tenderness. NEUROLOGICAL: Cranial nerves II through XII grossly intact. Normal speech, normal gait. PSYCH: Normal mood, normal affect. SKIN: Warm, Dry, normal turgor, no rashes or lesions noted. <Marla Ceja - Last Filed: 11/08/18 00:00> Moderate Sedation - Procedure Monitoring Vital Signs: Procedure Monitoring Vital Signs Temperature 98.4 F 11/07/18 22:59 Pulse Rate 82 11/07/18 22:59 Respiratory Rate 16 11/07/18 22:59 Blood Pressure 153/82 11/07/18 22:59 O2 Sat by Pulse Oximetry (%) 100 11/07/18 22:59 <Marla Ceja - Last Filed: 11/08/18 00:00> Medical Decision Making - Medical Decision Making Documentation has been prepared under my direction and personally reviewed by me in its entirety. I attest that this documented accurately reflects all work, treatment, procedures and medical decision making performed by me. As noted above, this 37-year-old woman with a history of hypertension presents with history of elevated blood pressure readings on her home monitor today. Patient states that she has been having increased neck pain in the last few days (patient has a history of chronic neck pain). She took several readings on her blood pressure monitor today because she "was not feeling well" secondary to her neck pain. Blood pressure was elevated on a few of these readings as noted above in patient became concerned. No other significant associated symptoms noted. Exam as noted was normal. Patient reassured that blood pressure fluctuates throughout the day; she should maintain her habit of taking her blood pressure only once a day (patient states he normally takes readings only just prior to going to sleep). Meanwhile, she should plan on following up with her general medical doctor (Dr. Galvan) as well as her timber selector as scheduled in 3 months. She should continue medications as prescribed. <Amarilis Porter - Last Filed: 11/08/18 04:56> *DC/Admit/Observation/Transfer - Attestations Scribe Attestion: 11/07/18 23:53 Documentation prepared by Marla Ceja, acting as medical reception specialist for Amarilis Porter MD. <Marla Ceja - Last Filed: 11/08/18 00:00> <Amarilis Porter - Last Filed: 11/08/18 04:56> Diagnosis at time of Disposition: Essential hypertension - Discharge Dispostion Disposition: HOME Condition at time of disposition: Stable - Referrals Referrals: Coral Galvan MD [Primary Care Provider] - - Patient Instructions Printed Discharge Instructions: DI for High Blood Pressure Additional Instructions: continue blood pressure medications as prescribed take blood pressure reading at same time every day Return to ER if you have prolonged chest pressure/shortness of breath/nausea Follow-up with your timber selector as scheduled - Post Discharge Activity
[2018-11-07 23:05] VITALS: BP 153/82; PULSE 82; TEMP 98.4; BMI 60.4
== END 2018-11-07 23:59 | disposition home or self-care (01) ==
LOC: FER 21:10
DX: I10 Essential (primary) hypertension (principal); Z87.891 Personal history of nicotine dependence; K21.9 Gastro-esophageal reflux disease without esophagitis
CPT/HCPCS: 99281-25

== ENCOUNTER 2018-11-13 15:54 | Emergency (ER) | payer OTHER ==
--- NOTE | 2018-11-13 16:01 | PDOC ---
Attending Attestation - Resident Resident Name: JamesBud - ED Attending Attestation I have performed the following: I have examined & evaluated the patient, The case was reviewed & discussed with the resident, I agree w/resident's findings & plan, Exceptions are as noted - HPI HPI: 11/13/18 16:42 Nasal congestion and nonproductive cough for several days. No fever/chills, chest pain, shortness of breath, abdominal pain, nausea, vomiting, diarrhea. Past medical history includes transient hypertension. - Physicial Exam PE: 11/13/18 16:43 Physical exam reveals nasal congestion and postnasal drip. The lungs are clear, with full breath sounds bilaterally, no wheezes rales or rhonchi there is mild tenderness over the left maxillary sinus. - Medical Decision Making 11/13/18 16:43 Assessment: There is no sign of bronchitis or pneumonia. The cough is most likely due to URI with postnasal drip. Plan: Symptomatic treatment and follow-up as directed. The patient hasn't appointment with ENT tomorrow for a CAT scan of her sinuses. It is recommended she keep the appointment and follow-up as directed.
[2018-11-13 16:10] VITALS: BP 147/97; PULSE 74; TEMP 98.3; BMI 60.2
[2018-11-13] MEDS ORDERED: SODIUM CHLORIDE FOR INHALATION 3 ML VIAL.NEB IH ONE ×2 (16:20→16:41)
--- NOTE | 2018-11-13 16:20 | PDOC ---
History of Present Illness - General Stated Complaint: COUGH, CHEST CONGESTION, DIZZY Time Seen by Provider: 11/13/18 15:58 - History of Present Illness Initial Comments: 37 year old female with history of HTN presenting with cough, congestion, and chest tightness over the center of her chest worse with cough. She has had dry cough, congestion, and this chest tightness for the past few days. The cough was the presenting symptom that has been non-productive and is has now caused worsening chest tightness. She has not taken any medication for it because she is worried about interactions with her anti-HTN medications. Deneis any nausea vomiting, headache, isolated chest pain, measured fevers, chills, abdominal pain , SOB, or other symptoms. 11/13/18 16:44 Past History - Past Medical History Allergies/Adverse Reactions: Allergies Allergy/AdvReac Type Severity Reaction Status Date / Time No Known Allergies Allergy Verified 11/13/18 15:55 Home Medications: Ambulatory Orders Labetalol HCl 100 mg PO BID 02/18/18 Amlodipine Besylate 5 mg PO DAILY 11/13/18 Guaifenesin [Mucinex -] 600 mg PO BID #14 tablet.er 11/13/18 Pantoprazole Sodium [Protonix -] 20 mg PO DAILY 11/13/18 COPD: No GI Disorders: Yes (GERD) HTN: Yes - Surgical History Cardiac Surgery: Yes - Suicide/Smoking/Psychosocial Hx Smoking History: Former smoker Have you smoked in the past 12 months: No Number of Cigarettes Smoked Daily: 10 If you are a former smoker, when did you quit?: 2 YEARS 'Breaking Loose' booklet given: 11/01/16 Hx Alcohol Use: Yes (RARE) Drug/Substance Use Hx: No Substance Use Type: None Review of Systems - Review of Systems Constitutional: No: Chills, Diaphoresis, Fever HEENTM: No: Blurred Vision, Tearing Respiratory: Yes: Cough. No: Shortness of Breath, Productive cough Cardiac (ROS): Yes: Chest Tightness. No: Edema, Irregular Heart Rate, Lightheadedness, Palpitations ABD/GI: No: Diarrhea, Nausea, Vomiting : No: Burning, Dysuria, Discharge Musculoskeletal: No: Back Pain, Joint Pain Integumentary: No: Bruising, Erythema, Flushing, Lesions Neurological: No: Headache, Numbness, Paresthesia, Tremors Psychiatric: No: Anxiety, Depression Endocrine: No: Intolerance to Heat, Increased Thirst, Increased Urine Hematologic/Lymphatic: No: Anemia, Blood Clots, Easy Bleeding, Easy Bruising *Physical Exam - Physical Exam General Appearance: Yes: Nourished, Appropriately Dressed. No: Apparent Distress HEENT: positive: EOMI, HOANG, Normal ENT Inspection, Normal Voice Neck: positive: Trachea midline, Normal Thyroid, Supple. negative: Tender, Rigid Respiratory/Chest: negative: Chest Tender, Lungs Clear, Normal Breath Sounds ( right sided coarse breath sounds in the mid lung field), Respiratory Distress, Accessory Muscle Use Cardiovascular: positive: Regular Rhythm, Regular Rate Gastrointestinal/Abdominal: positive: Normal Bowel Sounds, Flat, Soft. negative : Tender Lymphatic: negative: Adenopathy, Tenderness Musculoskeletal: positive: Normal Inspection. negative: Decreased Range of Motion Extremity: positive: Normal Capillary Refill, Normal Inspection, Normal Range of Motion. negative: Tender Integumentary: positive: Normal Color, Dry, Warm Neurologic: positive: Fully Oriented, Alert, Normal Mood/Affect, Normal Response , Motor Strength 5/5 Medical Decision Making - Medical Decision Making 37 year old female with HTN presenting with cough, congestion, and chest tightness for the past few days. She hasn't taken any over the counter medications for this. CXR here clear, and patient better with saline nebs. Will DC with mucinex and OTC lozenges. 11/13/18 17:49 *DC/Admit/Observation/Transfer Diagnosis at time of Disposition: URI with cough and congestion - Discharge Dispostion Disposition: HOME Condition at time of disposition: Improved Decision to Admit order: No - Prescriptions Prescriptions: Guaifenesin [Mucinex -] 600 mg PO BID #14 tablet.er - Referrals Referrals: Coral Galvan MD [Primary Care Provider] - - Patient Instructions Printed Discharge Instructions: DI for Viral Upper Respiratory Infection -- Adult Additional Instructions: Please take the Mucinex twice a day. Please use throat lozenges as needed for throat soreness. Please follow up with Dr. Galvan as needed. Please return to the ED if you have any new or worsening symptoms. - Post Discharge Activity
[2018-11-13] MEDS: SODIUM CHLORIDE FOR INHALATION 3 ML VIAL.NEB IH PRN ×2 (16:35→16:45)
--- NOTE | 2018-11-14 15:10 | EKG ---
Test Reason : Blood Pressure : / mmHG Vent. Rate : 070 BPM Atrial Rate : 070 BPM P-R Int : 186 ms QRS Dur : 088 ms QT Int : 366 ms P-R-T Axes : 058 013 033 degrees QTc Int : 395 ms NORMAL SINUS RHYTHM NORMAL ECG WHEN COMPARED WITH ECG OF 19-SEP-2018 19:42, NO SIGNIFICANT CHANGE WAS FOUND Confirmed by Parminder Barker MD ([id number]) on 11/14/2018 3:09:58 PM Referred By: Confirmed By:Parminder Barker MD
== END 2018-11-13 18:20 | disposition home or self-care (01) ==
LOC: FER 15:54
PROC: 3E0F7GC Introduction of Other Therapeutic Substance into Respiratory Tract, Via Natural or Artificial Opening (ICD-10-PCS; principal; 2018-11-13)
DX: J06.9 Acute upper respiratory infection, unspecified (principal); I10 Essential (primary) hypertension; Z87.891 Personal history of nicotine dependence
CPT/HCPCS: 71046-TC-FY; 84703; 93005; 94640; 99283-25

== ENCOUNTER 2018-11-23 20:33 | Emergency (ER) | payer OTHER ==
--- NOTE | 2018-11-23 20:40 | PDOC ---
History of Present Illness - General History Source: Patient Exam Limitations: No Limitations - History of Present Illness Initial Comments: 11/23/18 21:18 A portion of this note was documented by scribe services under my direction. I have reviewed the details of the note, within reason, and agree with the documentation with the following case summary and management plan written by me. Patient treated in the ED. Nursing notes are reviewed and incorporated into the medical decision-making. Vital signs reviewed. Assessment plan: This a 37-year-old female who is morbidly obese and comes in complaining of elevated blood pressure. Patient's blood pressure here in the emergency department was approximately 156/100. Patient otherwise had some flushing secondary to a new medication hydralazine that she was started on. Patient otherwise denied any chest pain, shortness of breath or neurological complaints. Patient was reassured and told to make sure she continues her blood pressure medication as prescribed and follow-up with her primary care doctor <Ashish Culp I - Last Filed: 11/23/18 21:19> - History of Present Illness Initial Comments: This patient is a 37 year old female with PMHx of obesity, HTN, GERD, who presents with elevated blood pressure. Patient states that she saw her PCP earlier who added a new bp medication (hydralazine) (currently on amlodipine, labetalol and water pill). She was getting her script filled at the pharmacy when she asked the pharmacist to take her bp since she doesnt have a cuff at home. Pharmacist noted to to be 160/110 and suggested she get it checked which is why she presents here. She also notes flushing, burning sensation under her skin after taking the new medication. She also notes a mild headache which she attributes to her hair being tightly held back in a pony tail. Blood pressure was 146/90 at PCPs office earlier and 156/100 here in ED. Denies any chest pain or shortness of breath. Past surgical Hx: Social Hx: Former smoker PCP: Cole Harper: Emma CAGLE General: No fevers or chills, no weakness, no weight loss HEENT: No change in vision. No sore throat, No ear pain Cardiovascular: No chest pain or shortness of breath Respiratory:No cough, or wheezing. Gastrointestinal: No nausea, vomiting, diarrhea or constipation, No rectal bleeding Genitourinary: No dysuria, hematuria, or frequency Musculoskeletal: No joint or muscle pain or swelling Neurologic: + mild headache, no vertigo, dizziness or loss of consciousness Psychiatric: No depression Skin: + flushing of face and burning sensation under skin of face and chest. No rashes or easy bruising Endocrine: No increased thirst or abnormal weight change Allergic: No skin or latex allergy All other systems reviewed and normal PE GENERAL: The patient is awake, alert, and fully oriented, in no acute distress. HEAD: Normal with no signs of trauma. EYES: Pupils equal, round and reactive to light, extraocular movements intact, sclera anicteric, conjunctiva clear. EXTREMITIES: Normal range of motion, no edema. NEUROLOGICAL: Normal speech, normal gait. PSYCH: Normal mood, normal affect. SKIN: Warm, Dry, normal turgor, no rashes or lesions noted. 11/23/18 21:28 <Jeniffer Gonzales - Last Filed: 11/23/18 21:28> - General Chief Complaint: Blood Pressure Problem Stated Complaint: EVALUATE BLOOD PRESSURE Time Seen by Provider: 11/23/18 20:40 Past History - Past Medical History COPD: No GI Disorders: Yes (GERD) HTN: Yes - Surgical History Cardiac Surgery: Yes - Suicide/Smoking/Psychosocial Hx Smoking History: Former smoker Have you smoked in the past 12 months: No Number of Cigarettes Smoked Daily: 10 If you are a former smoker, when did you quit?: 2 YEARS 'Breaking Loose' booklet given: 11/01/16 Hx Alcohol Use: Yes (RARE) Drug/Substance Use Hx: No Substance Use Type: None <Ashish Culp I - Last Filed: 11/23/18 21:19> <Jeniffer Gonzales - Last Filed: 11/23/18 21:28> - Past Medical History Allergies/Adverse Reactions: Allergies Allergy/AdvReac Type Severity Reaction Status Date / Time No Known Allergies Allergy Verified 11/23/18 20:35 Home Medications: Ambulatory Orders Labetalol HCl 100 mg PO BID 02/18/18 Amlodipine Besylate 10 mg PO DAILY 11/13/18 Pantoprazole Sodium [Protonix -] 20 mg PO DAILY 11/13/18 Chlorthalidone 25 mg PO DAILY 11/23/18 Sucralfate [Carafate -] 1 gm PO DAILY 11/23/18 hydrALAZINE HCL [Apresoline -] 25 mg PO DAILY 11/23/18 Review of Systems - Review of Systems Comments:: 11/23/18 21:25 see HPI <Jeniffer Gonzales - Last Filed: 11/23/18 21:28> *Physical Exam - Vital Signs Last Vital Signs Temp Pulse Resp BP Pulse Ox 97.8 F 78 16 150/100 100 11/23/18 20:34 11/23/18 20:34 11/23/18 20:34 11/23/18 20:34 11/23/18 20:34 - Physical Exam Comments: 11/23/18 21:26 see HPI <Jeniffer Gonzales - Last Filed: 11/23/18 21:28> Moderate Sedation - Procedure Monitoring Vital Signs: Procedure Monitoring Vital Signs Temperature 97.8 F 11/23/18 20:34 Pulse Rate 78 11/23/18 20:34 Respiratory Rate 16 11/23/18 20:34 Blood Pressure 150/100 11/23/18 20:34 O2 Sat by Pulse Oximetry (%) 100 11/23/18 20:34 <Jeniffer Gonzales - Last Filed: 11/23/18 21:28> *DC/Admit/Observation/Transfer - Discharge Dispostion Decision to Admit order: No <Ashish Culp I - Last Filed: 11/23/18 21:19> - Attestations Scribe Attestion: 11/23/18 21:26 Documentation prepared by Jeniffer Gonzales, acting as medical technologist hematology for Ashish Culp MD. <Jeniffer Gonzales - Last Filed: 11/23/18 21:28> Diagnosis at time of Disposition: Essential hypertension - Discharge Dispostion Disposition: HOME Condition at time of disposition: Stable - Patient Instructions Printed Discharge Instructions: DI for High Blood Pressure, How to Monitor Your Blood Pressure at Home Additional Instructions: Take all your blood pressure medications as prescribed. Return to the emergency department immediately with ANY new, persistent or worsening symptoms. Continue any medications as previously prescribed by your physician. You should follow up with your primary doctor as soon as possible regarding today's emergency department visit. . Please make sure your doctor reviews the results of your emergency evaluation. Thank you for coming to the Emergency Department today for your care. It was a pleasure to see you today. Please note that your evaluation is INCOMPLETE until you follow-up with your doctor.
[2018-11-23 20:49] VITALS: PULSE 78; TEMP 97.8; BMI 58.7
[2018-11-23 21:29] VITALS: BP 151/90
== END 2018-11-23 21:29 | disposition home or self-care (01) ==
LOC: FER 20:33
DX: I10 Essential (primary) hypertension (principal); E66.01 Morbid (severe) obesity due to excess calories; Z68.43 Body mass index [BMI] 50.0-59.9, adult; K21.9 Gastro-esophageal reflux disease without esophagitis; Z87.891 Personal history of nicotine dependence
CPT/HCPCS: 99281-25

== ENCOUNTER 2018-11-26 15:27 | Emergency (ER) | payer OTHER ==
[2018-11-26 15:32] VITALS: BP 142/83; PULSE 80; TEMP 98.1; BMI 58.3
[2018-11-26] MEDS ORDERED: ACETAMINOPHEN 325 MG TABLET (FP) PO ONE (16:06)
[2018-11-26] MEDS ORDERED: LIDOCAINE 5% TOPICAL PATCH TP ONE (16:06)
[2018-11-26] MEDS ORDERED: MAG HYDROX/AL HYDROX/SIMETH 30 ML UNIT-DOSE CUP PO ONE (16:07)
--- NOTE | 2018-11-26 16:17 | PDOC ---
History of Present Illness - General Chief Complaint: Pain, Acute Stated Complaint: neck pain Time Seen by Provider: 11/26/18 15:30 History Source: Patient Exam Limitations: No Limitations - History of Present Illness Initial Comments: 11/26/18 16:17 HPI 37 year old female with PMHx of obesity, HTN, GERD presenting with posterior occipital head and neck throbbing pain, nasal congestion and clear productive cough x 2 days, no exacerbating or alleviating factors. She also endorses left ear throbbing and pulsating sensation, associated with pressure in left face and around the eyes. Occasional sensation of burning across her chest and epigastrium, several hours after eating, last occurred earlier this morning and afternoon. recently stopped taking cetirizine for her allergies about 1 week ago due to her BP issue. Has recently been having her antihypertensive regimen getting adjusted due to poor control, seeing new PMD tomorrow with [facility]. No trauma. No exertional activity. Denies fever, chills, hearing or visual disturbances, chest pain, SOB, BROWN, palpitations, dizziness, weakness, paresthesias, N, V, D, abdominal pain, bladder and bowel problems, leg swelling, No sick contacts or travel. Allergies : NKA Past surgical history: noncontributory Social history: Nonsmoker. Denies EtOH use and recreational drug use. Primary Care Physician: Dr. Basil Galvan Drawing Hand: Dr. Eleuterio CAGLE Constitutional: no fevers or chills. No weakness or sweats HEENT: no dizziness.No visual/hearing disturbances. No sore throat. +nasal congestion, +sinus pressure. +ear discomfort. CVS: no cp or syncope. Resp: no sob. No BROWN. +cough. Gastrointestinal: no abdominal pain, nausea or vomiting. MUSCULOSKELETAL: +neck pain. No myalgias. No joint pain and swelling. No back pain. SKIN: no redness or skin changes, no discharge, no rash. No wounds. Hematologic: no easy bruising/bleeding. NEUROLOGIC: +headache. No dizziness, LOC or altered mental status. No weakness, numbness or tingling. Allergic/Immunologic: no allergies All other systems reviewed and negative, or as documented in HPI. PE: General: Well appearing, awake and alert, NAD. HEENT: NCAT, PERRL, EOMI, clear conjunctiva, anicteric, clear oropharynx, no oral lesions.. Normal phonation. +left maxillary sinus TTP. no skin changes, CN II-XII grossly intact. T.M clear bilaterally, no tenderness with pinna manipulation. Neck: neck supple, FROM; Posterior cervical neck and upper thoracic TTP, tense Resp: CTAB, normal and even respirations, no respiratory distress CVS: RRR, no murmurs, 2+ peripheral pulses throughout, no peripheral edema Abdomen: soft, NTND, obese Back: nontender, normal inspection and ROM MSK: no edema, DANIEL x4, ROM intact. No clubbing or cyanosis. normal bulk and tone. Extremities: no calf tenderness Neuro: alert Skin: warm and well perfused, cap refill <2 sec, normal color 11/26/18 17:08 Past History - Past Medical History Allergies/Adverse Reactions: Allergies Allergy/AdvReac Type Severity Reaction Status Date / Time No Known Allergies Allergy Verified 11/26/18 15:29 Home Medications: Ambulatory Orders Labetalol HCl 100 mg PO BID 02/18/18 Amlodipine Besylate 10 mg PO DAILY 11/13/18 Pantoprazole Sodium [Protonix -] 20 mg PO DAILY 11/13/18 Chlorthalidone 25 mg PO DAILY 11/23/18 Sucralfate [Carafate -] 1 gm PO DAILY 11/23/18 hydrALAZINE HCL [Apresoline -] 25 mg PO DAILY 11/23/18 Lidocaine 5% Patch [Lidoderm Patch -] 1 patch TP DAILY #30 patch 11/26/18 COPD: No GI Disorders: Yes (GERD) HTN: Yes - Surgical History Cardiac Surgery: Yes - Suicide/Smoking/Psychosocial Hx Smoking History: Never smoked Have you smoked in the past 12 months: No Number of Cigarettes Smoked Daily: 10 If you are a former smoker, when did you quit?: 2 YEARS 'Breaking Loose' booklet given: 11/01/16 Hx Alcohol Use: No Drug/Substance Use Hx: No Substance Use Type: None *Physical Exam - Vital Signs Last Vital Signs Temp Pulse Resp BP Pulse Ox 98.1 F 80 17 142/83 100 11/26/18 15:28 11/26/18 15:28 11/26/18 15:28 11/26/18 15:28 11/26/18 15:28 Moderate Sedation - Procedure Monitoring Vital Signs: Procedure Monitoring Vital Signs Temperature 98.1 F 11/26/18 15:28 Pulse Rate 80 11/26/18 15:28 Respiratory Rate 17 11/26/18 15:28 Blood Pressure 142/83 11/26/18 15:28 O2 Sat by Pulse Oximetry (%) 100 11/26/18 15:28 ED Treatment Course - RADIOLOGY Radiology Studies Ordered: Category Date Time Status CHEST PA & LAT [RAD] Stat Radiology 11/26/18 16:05 Ordered Medical Decision Making - Medical Decision Making 11/26/18 16:17 hpi as documented. VS wnl, reassuring, reviewed. ddx cervical spasm, sinusitis, sinus headache, viral syndrome, URI no meningeal signs or symptoms. no fever or systemic findings or AMS, no neuro changes to suggest intracranial abnormality. no cp or sob likely viral syndrome vs viral sinusitis, with 2 d history can be treated supportively, hydration and rest given analgesia here, topical lidoderm no nasal sprays or decongestants with her poor BP control does not appear to influenza type sx, so defer treatment. Cxr clear, normal cardiac silhouette, no effusion or infiltrate EKG normal sinus rhythm, no interval abnormalities, narrow QRS, ST and T wave segments and morphology normal. Nonspecific T wave abnormalities in III< only no contiguous lead changes, unchanged from former EKGs. doubt cardiac or systemic infection. remains stable and well appearing. BP mildly elevated, but no sx, can recheck and get outpatient readjustments of her meds which is occurring tomorrow. otc tylenol/topical lidoderm patch for the neck spasms and myofascial pain. no sedating agents. dispo: Pt informed of my clinical impression, treatment recommendations and disposition plan. All questions answered to patient's satisfaction and expressed understanding and comfort with this. Reasons for returning to the ED sooner discussed with the patient otherwise, follow up with primary care physician. At the time of discharge, the patient is alert, clinically improved, tolerating po and verbalizes understanding of instructions. Patient does not suffer from an acute life-threatening medical condition at this time she is safe for outpatient follow-up. 11/26/18 17:06 11/26/18 17:10 *DC/Admit/Observation/Transfer Diagnosis at time of Disposition: Neck pain URI (upper respiratory infection) Qualifiers: URI type: unspecified viral URI Qualified Code(s): J06.9 - Acute upper respiratory infection, unspecified Sinusitis Qualifiers: Sinusitis location: maxillary Chronicity: unspecified Qualified Code(s): J32.0 - Chronic maxillary sinusitis - Discharge Dispostion Disposition: HOME Condition at time of disposition: Stable Decision to Admit order: No - Prescriptions Prescriptions: Lidocaine 5% Patch [Lidoderm Patch -] 1 patch TP DAILY #30 patch - Referrals Referrals: Coral Galvan MD [Staff Physician] - - Patient Instructions Printed Discharge Instructions: DI for Gastroesophageal Reflux Disease (GERD), DI for Viral Upper Respiratory Infection -- Adult, DI for Neck Pain, GERD Diet Additional Instructions: your EKG was normal your Chest x ray is clear for infection you most likely have a viral sinusitis vs upper respiratory infection - no antibiotic is necessary at this time you can stay well hydrated, take tylenol as needed for pain and topical lidoderm patch. no anti inflammatories or agentss that can make your blood pressure elevated no nasal decongestants. use the lidoderm as needed once daily, 12 hours on and 12 hours off for the neck pain/spasms - for 1 week, enough supply provided you may also take maalox or mylanta every 6 hours with meal for reflux symptoms , with the burning you have with eating. avoid triggers and foods that can cause the heartburn follow up with your primary doctor return if worsening symptoms such as chest pain, respiratory distress, high fever, vomiting, dehydration, fainting, neurologic changes. - Post Discharge Activity
[2018-11-26] MEDS ORDERED: ACETAMINOPHEN 325 MG TABLET (FP) ONE (16:24)
[2018-11-26] MEDS ORDERED: MAG HYDROX/AL HYDROX/SIMETH 30 ML UNIT-DOSE CUP ONE (16:24)
[2018-11-26] MEDS ORDERED: LIDOCAINE 5% TOPICAL PATCH ONE (16:25)
[2018-11-26] MEDS ORDERED: LIDOCAINE PATCH REMOVAL MC SCH (22:00)
--- NOTE | 2018-11-27 10:38 | EKG ---
Test Reason : Blood Pressure : / mmHG Vent. Rate : 074 BPM Atrial Rate : 074 BPM P-R Int : 192 ms QRS Dur : 086 ms QT Int : 404 ms P-R-T Axes : 036 002 036 degrees QTc Int : 448 ms NORMAL SINUS RHYTHM MINIMAL VOLTAGE CRITERIA FOR LVH, MAY BE NORMAL VARIANT BORDERLINE ECG WHEN COMPARED WITH ECG OF 13-NOV-2018 16:30, QT HAS LENGTHENED Confirmed by BRITANY GASCA, SIL ([id number]) on 11/27/2018 10:38:10 AM Referred By: SAW Confirmed By:SLI GARG MD
== END 2018-11-26 17:30 | disposition home or self-care (01) ==
LOC: FER 15:27
DX: M54.2 Cervicalgia (principal); R20.8 Other disturbances of skin sensation; J06.9 Acute upper respiratory infection, unspecified; J32.0 Chronic maxillary sinusitis
CPT/HCPCS: 71046-TC-FY; 93005; 99282-25

== ENCOUNTER 2018-12-01 14:24 | Emergency (ER) | payer OTHER ==
--- NOTE | 2018-12-01 14:26 | PDOC ---
Rapid Medical Evaluation Medical Evaluation: Allergies Allergy/AdvReac Type Severity Reaction Status Date / Time No Known Allergies Allergy Verified 11/26/18 15:29 12/01/18 14:26 I have performed a brief in-person evaluation of this patient. The patient presents with a chief complaint of:sent in by pmd for hypokalemia ( 2.7) on labs 11/27. C/o muscle weakness. H/o morbid obesity, HTN, on chlorthalidone. Pertinent physical exam findings:stable and in NAD I have ordered the following:ekg/labs The patient will proceed to the ED for further evaluation. 12/01/18 14:28 Discharge Disposition - Diagnosis Hypokalemia - Referrals - Patient Instructions - Post Discharge Activity
[2018-12-01 14:28] VITALS: BMI 58.1
[2018-12-01 15:13] LABS: ALK PHOS 112 U/L (45-117); ANION GAP 8 MMOL/L (8-16); BILIRUBIN,TOTAL 0.6 mg/dL (0.2-1); BLOOD UREA NITROGEN 14 mg/dL (7-18); CALCIUM 9.8 mg/dL (8.5-10.1); CHLORIDE 96 mmol/L (98-107); CO2 30 mmol/L (21-32); CREATININE 0.9 mg/dL (0.55-1.3); GLUCOSE,RANDOM 99 mg/dL (74-106); POTASSIUM 3.2 mmol/L (3.5-5.1); SGOT/AST 23 U/L (15-37); SGPT/ALT 45 U/L (13-61); SODIUM 134 mmol/L (136-145); TOT PROT 7.8 g/dl (6.4-8.2)
[2018-12-01 15:41] LABS: BASO % 0.7 % (0-2.0); EOS % 1.4 % (0-4.5); HEMATOCRIT 40.6 % (32.4-45.2); HEMOGLOBIN 14.1 GM/dL (10.7-15.3); LYMPH % 23.6 % (8-40); MCH 28.1 pg (25.7-33.7); MCHC 34.8 g/dl (32.0-36.0); MEAN CELL VOLUME 80.8 fl (80-96); MEAN PLT VOLUME 9.4 fl (7.5-11.1); MONO % 8.7 % (3.8-10.2); NEUT % 65.6 % (42.8-82.8); PLATELET COUNT 313 K/MM3 (134-434); RBC 5.02 M/mm3 (3.60-5.2); RDW 13.8 % (11.6-15.6); WHITE BLOOD COUNT 11.3 K/mm3 (4.0-10.0)
[2018-12-01] MEDS ORDERED: POTASSIUM CHLORIDE TABS 20 MEQ TABLET.ER (FP) PO ONE ×2 (17:53→18:16)
--- NOTE | 2018-12-01 17:56 | PDOC ---
History of Present Illness - General History Source: Patient Exam Limitations: No Limitations - History of Present Illness Initial Comments: 12/01/18 19:18 Pt is a 37 y/o F with PMH of HTN on diuretic, HLD, who presents to the ED with low potassium reading from her PCP. She had her blood work drawn on 11/27/18 and it resulted today. K reading was 2.8. She was told by her PCP to come to the ED for evaluation. Pt reports associated chest tightness and muscle cramps. She states her PCP stopped her water pill and added K as an out patient. Denies palpitations, fevers, SOB, Diff breathing, lightheadedness and dizziness <Lena Arnold - Last Filed: 12/01/18 19:30> <Kamilah Perez - Last Filed: 12/01/18 20:06> - General Chief Complaint: Revisit, Lab Variance Stated Complaint: SENT BY PCP Time Seen by Provider: 12/01/18 17:02 Past History - Past Medical History COPD: No GI Disorders: Yes (GERD) HTN: Yes - Surgical History Cardiac Surgery: Yes - Suicide/Smoking/Psychosocial Hx Smoking History: Never smoked Have you smoked in the past 12 months: No Number of Cigarettes Smoked Daily: 10 If you are a former smoker, when did you quit?: 2 YEARS 'Breaking Loose' booklet given: 11/01/16 Hx Alcohol Use: Yes (RARE) Drug/Substance Use Hx: No Substance Use Type: None <Lena Arnold - Last Filed: 12/01/18 19:30> <Kamilah Perez - Last Filed: 12/01/18 20:06> - Past Medical History Allergies/Adverse Reactions: Allergies Allergy/AdvReac Type Severity Reaction Status Date / Time No Known Allergies Allergy Verified 11/26/18 15:29 Home Medications: Ambulatory Orders Labetalol HCl 100 mg PO BID 02/18/18 Amlodipine Besylate 10 mg PO DAILY 11/13/18 Pantoprazole Sodium [Protonix -] 20 mg PO DAILY 11/13/18 Chlorthalidone 25 mg PO DAILY 11/23/18 Sucralfate [Carafate -] 1 gm PO DAILY 11/23/18 hydrALAZINE HCL [Apresoline -] 25 mg PO DAILY 11/23/18 Lidocaine 5% Patch [Lidoderm Patch -] 1 patch TP DAILY #30 patch 11/26/18 Review of Systems - Review of Systems Able to Perform ROS?: Yes Comments:: 12/01/18 19:03 CONSTITUTIONAL: Absent: fever, chills, diaphoresis, generalized weakness, malaise, loss of appetite HEENT: Absent: rhinorrhea, nasal congestion, throat pain, throat swelling, difficulty swallowing, mouth swelling, ear pain, eye pain, visual Changes CARDIOVASCULAR: Absent: chest pain, loss of consciousness, palpitations, irregular heart rate, peripheral edema RESPIRATORY: Absent: cough, shortness of breath, dyspnea with exertion, orthopnea, wheezing, stridor, hemoptysis GASTROINTESTINAL: Absent: abdominal pain, abdominal distension, nausea, vomiting, diarrhea, constipation, melena, hematochezia GENITOURINARY: Absent: dysuria, frequency, urgency, hesitancy, hematuria, flank pain, genital pain MUSCULOSKELETAL: Absent: myalgia, arthralgia, joint swelling SKIN: Absent: rash, itching, pallor HEMATOLOGIC/IMMUNOLOGIC: Absent: easy bleeding, easy bruising, lymphadenopathy, frequent infections ENDOCRINE: Absent: unexplained weight gain, unexplained weight loss, heat intolerance, cold intolerance NEUROLOGIC: Absent: headache, focal weakness or paresthesias, dizziness, unsteady gait, seizure, mental status changes, bladder or bowel incontinence PSYCHIATRIC: Absent: anxiety, depression, suicidal or homicidal ideation, hallucinations. Is the patient limited [place]an proficient: No <Lena Arnold - Last Filed: 12/01/18 19:30> *Physical Exam - Vital Signs Last Vital Signs Temp Pulse Resp BP Pulse Ox 98 F 90 18 152/86 97 12/01/18 14:26 12/01/18 14:26 12/01/18 14:26 12/01/18 14:26 12/01/18 14:26 - Physical Exam Comments: 12/01/18 19:03 GENERAL: Well developed, well nourished. Awake and alert. No acute distress. HEENT: Normocephalic, atraumatic. PERRLA, EOMI. No conjunctival pallor. Sclera are non- icteric. Moist mucous membranes. Oropharynx is clear. NECK: Supple. Full ROM. No JVD. Carotid pulses 2+ and symmetric, without bruits. No thyromegaly. No lymphadenopathy. CARDIOVASCULAR: Regular rate and rhythm. No murmurs, rubs, or gallops. Distal pulses are 2+ and symmetric. PULMONARY: No evidence of respiratory distress. Lungs clear to auscultation bilaterally. No wheezing, rales or rhonchi. ABDOMINAL: Soft. Non-tender. Non-distended. No rebound or guarding. No organomegaly. Normoactive bowel sounds. MUSCULOSKELETAL Normal range of motion at all joints. No bony deformities or tenderness. No CVA tenderness. EXTREMITIES: No cyanosis. No clubbing. No edema. No calf tenderness. SKIN: Warm and dry. Normal capillary refill. No rashes. No jaundice. NEUROLOGICAL: Alert, awake, appropriate. Cranial nerves 2-12 intact. No deficits to light touch and temperature in face, upper extremities and lower extremities. No motor deficits in the in face, upper extremities and lower extremities. Normoreflexic in the upper and lower extremities. Normal speech. Toes are down- going bilaterally. Gait is normal without ataxia. PSYCHIATRIC: Cooperative. Good eye contact. Appropriate mood and affect. <Lena Arnold - Last Filed: 12/01/18 19:30> - Vital Signs Last Vital Signs Temp Pulse Resp BP Pulse Ox 97.4 F L 60 18 114/74 100 12/01/18 18:56 12/01/18 18:56 12/01/18 14:26 12/01/18 18:56 12/01/18 18:56 <Kamilah Perez - Last Filed: 12/01/18 20:06> Moderate Sedation - Procedure Monitoring Vital Signs: Procedure Monitoring Vital Signs Temperature 98 F 12/01/18 14:26 Pulse Rate 90 12/01/18 14:26 Respiratory Rate 18 12/01/18 14:26 Blood Pressure 152/86 12/01/18 14:26 O2 Sat by Pulse Oximetry (%) 97 12/01/18 14:26 <Lena Arnold - Last Filed: 12/01/18 19:30> - Procedure Monitoring Vital Signs: Procedure Monitoring Vital Signs Temperature 97.4 F L 12/01/18 18:56 Pulse Rate 60 12/01/18 18:56 Respiratory Rate 18 12/01/18 14:26 Blood Pressure 114/74 12/01/18 18:56 O2 Sat by Pulse Oximetry (%) 100 12/01/18 18:56 <Kamilah Perez - Last Filed: 12/01/18 20:06> ED Treatment Course - LABORATORY CBC & Chemistry Diagram: 12/01/18 14:42 12/01/18 14:30 - ADDITIONAL ORDERS Additional order review: Laboratory Results 12/01/18 12/01/18 14:42 14:30 Sodium 134 L Potassium 3.2 L Chloride 96 L Carbon Dioxide 30 Anion Gap 8 BUN 14 Creatinine 0.9 Creat Clearance w eGFR > 60 Random Glucose 99 Calcium 9.8 Total Bilirubin 0.6 AST 23 ALT 45 Alkaline Phosphatase 112 Total Protein 7.8 Albumin 4.0 Serum , Qual Negative 12/01/18 14:42 RBC 5.02 MCV 80.8 MCHC 34.8 RDW 13.8 MPV 9.4 Neutrophils % 65.6 Lymphocytes % 23.6 Monocytes % 8.7 Eosinophils % 1.4 Basophils % 0.7 <Lena Arnold - Last Filed: 12/01/18 19:30> - LABORATORY CBC & Chemistry Diagram: 12/01/18 14:42 12/01/18 14:30 - ADDITIONAL ORDERS Additional order review: Laboratory Results 12/01/18 12/01/18 14:42 14:30 Sodium 134 L Potassium 3.2 L Chloride 96 L Carbon Dioxide 30 Anion Gap 8 BUN 14 Creatinine 0.9 Creat Clearance w eGFR > 60 Random Glucose 99 Calcium 9.8 Total Bilirubin 0.6 AST 23 ALT 45 Alkaline Phosphatase 112 Total Protein 7.8 Albumin 4.0 Serum , Qual Negative 12/01/18 14:42 RBC 5.02 MCV 80.8 MCHC 34.8 RDW 13.8 MPV 9.4 Neutrophils % 65.6 Lymphocytes % 23.6 Monocytes % 8.7 Eosinophils % 1.4 Basophils % 0.7 - Medications Given in the ED: ED Medications Discontinued Medications Generic Name Dose Route Start Last Admin Trade Name Freq PRN Reason Stop Dose Admin Potassium Chloride 10 meq in 100 mls @ 100 mls/hr 12/01/18 18:00 12/01/18 18: 30 Potassium Chloride 10 Meq Premix Ivpb - IVPB 12/01/18 18:59 100 mls/hr Q60M TASHA Administration Potassium Chloride 40 meq 12/01/18 17:53 12/01/18 18:20 K-Dur - PO 12/01/18 17:54 40 meq ONCE ONE Administration <Kamilah Perez - Last Filed: 12/01/18 20:06> Medical Decision Making - Medical Decision Making 12/01/18 19:21 Pt with PMH of HTN presents to the ED with low K reading from PCP office -Repeat blood work shows a potassium of 3.2 -One run of IV K ordered, 40 PO given -Pt currently chest pain free in the ED, cramps most likely d/t low K -Labs otherwise normal -EKG: rate 76 BPM, NRS. Normal intervals and axis. No acute ST-T wave changes -VSS, afebrile -DC home <Lena Arnold - Last Filed: 12/01/18 19:30> - Medical Decision Making The patient was seen and evaluated in conjunction with midlevel provider under my direct supervision, ancillary studies were reviewed. I agree with the plan as outlined by MARILYN Arnold. HPI, workup/dispo as outlined. VS reviewed, wnl potassium low 2/2 new antihypertensive med - hctz k rich diet encouraged. potassium repleted here. EKG nonischemic DC home with PCP follow up for her bp management and side effects, k rich diet. 12/01/18 20:05 12/01/18 20:06 <Kamilah Perez - Last Filed: 12/01/18 20:06> *DC/Admit/Observation/Transfer - Discharge Dispostion Decision to Admit order: No <Lena Arnold - Last Filed: 12/01/18 19:30> <Kamilah Perez - Last Filed: 12/01/18 20:06> Diagnosis at time of Disposition: Hypokalemia - Discharge Dispostion Disposition: HOME Condition at time of disposition: Stable - Referrals Referrals: Dianne Bal MD [Primary Care Provider] - - Patient Instructions Printed Discharge Instructions: DI for Hypokalemia Additional Instructions: You were evaluated for your low potassium today You got both IV and oral potassium Take your blood pressure medications as prescribed Take the potassium as prescribed by your primary care doctor Follow up with your primary care doctor in 24-72 hours Return to the ED with any new or worsening symptoms - Post Discharge Activity
[2018-12-01] MEDS ORDERED: KCL 10 MEQ IVPB 10 MEQ/100 ML INFUS.BAG IVPB SCH (18:00)
[2018-12-01] MEDS ORDERED: KCL 10 MEQ IVPB 10 MEQ/100 ML INFUS.BAG IVPB ONE (18:17)
[2018-12-01 20:45] VITALS: BP 138/90; PULSE 88; TEMP 98.5
--- NOTE | 2018-12-02 22:05 | EKG ---
Test Reason : Blood Pressure : / mmHG Vent. Rate : 076 BPM Atrial Rate : 076 BPM P-R Int : 176 ms QRS Dur : 100 ms QT Int : 398 ms P-R-T Axes : 048 036 058 degrees QTc Int : 447 ms NORMAL SINUS RHYTHM NORMAL ECG WHEN COMPARED WITH ECG OF 26-NOV-2018 16:37, NO SIGNIFICANT CHANGE WAS FOUND Confirmed by SIL GARG MD ([id number]) on 12/02/2018 10:05:27 PM Referred By: Confirmed By:SIL GARG MD
== END 2018-12-01 20:46 | disposition home or self-care (01) ==
LOC: JER 14:24
PROC: 3E0337Z Introduction of Electrolytic and Water Balance Substance into Peripheral Vein, Percutaneous Approach (ICD-10-PCS; principal; 2018-12-01)
DX: E87.6 Hypokalemia (principal); I10 Essential (primary) hypertension; E78.5 Hyperlipidemia, unspecified; K21.9 Gastro-esophageal reflux disease without esophagitis
CPT/HCPCS: 36415; 80053; 84703; 85025; 93005; 93010; 96365; 99283-25

== ENCOUNTER 2018-12-24 01:14 | Emergency (ER) | payer OTHER ==
[2018-12-24 01:29] VITALS: BP 155/91; PULSE 78; TEMP 97.4; BMI 58.3
--- NOTE | 2018-12-24 01:43 | PDOC ---
History of Present Illness - General Chief Complaint: Blood Pressure Problem Stated Complaint: ELEVATED BP Time Seen by Provider: 12/24/18 01:39 History Source: Patient Exam Limitations: No Limitations - History of Present Illness Initial Comments: 12/24/18 01:43 This is a 38-year-old morbidly obese female who comes in complaining of several days of feeling of discomfort in her chest and so today she checked her blood pressure and noticed that it was high was 160 systolic. So she came in for evaluation. The emergency room patient denied any shortness of breath, nausea, diaphoresis or any radiation of the pain Allergies: None Past Medical History: none Social history: Lives with family. No smoking. No alcohol. No illicit drugs. Surgical history: None General: No fevers or chills, no weakness, no weight loss HEENT: No change in vision. No sore throat,. No ear pain CardioVascular: no chest discomfort. No shortness of breath Respiratory:No cough, or wheezing. Gastrointestinal: no nausea, vomiting, diarrhea or constipation, No rectal bleeding Genitourinary: No dysuria, hematuria, or frequency Musculoskeletal: No joint or muscle pain or swelling Neurologic: No headache, vertigo, dizziness or loss of consciousness Psychiatric: nor depression Skin: No rashes or easy bruising Endocrine: no increased thirst or abnormal weight change Allergic: no skin or latex allergy All other systems reviewed and normal Exam: General: Well-nourished well-developed individual, no acute distress HEENT: Throat: Normal, tonsils normal, no erythema or exudate Neck: Supple, no meningeal signs, no lymphadenopathy Eyes::Pupils equal reactive and round, extraocular motion intact Chest: Nontender to palpation Cardiac: S1-S2 normal, regular rate and rhythm, no murmurs rubs or gallops Respiratory: Lungs clear to auscultation bilateral Abdomen: Soft, nondistended, normal bowel sounds, there is no tenderness on palpation diffusely Extremities: Warm, dry, no cyanosis, clubbing, or edema Skin: No rashes Neuro: Alert and oriented x3, CN II - XII intact, nonfocal exam with normal strength, normal sensation, normal reflexes, normal gait, Psych: Normal mood and affect Assessment plan: This is a morbidly obese female who has some discomfort in her chest elevated blood pressure. Patient had an EKG was normal and admitted normal exam. Patient discharged told to follow-up with her doctor Past History - Past Medical History Allergies/Adverse Reactions: Allergies Allergy/AdvReac Type Severity Reaction Status Date / Time No Known Allergies Allergy Verified 11/26/18 15:29 Home Medications: Ambulatory Orders Labetalol HCl 100 mg PO BID 02/18/18 Amlodipine Besylate 10 mg PO DAILY 11/13/18 Pantoprazole Sodium [Protonix -] 20 mg PO DAILY 11/13/18 Sucralfate [Carafate -] 1 gm PO DAILY 11/23/18 Losartan Potassium 25 mg PO BID 12/24/18 COPD: No GI Disorders: Yes (GERD) HTN: Yes Other medical history: MORBIDLY OBESE - Surgical History Cardiac Surgery: Yes - Suicide/Smoking/Psychosocial Hx Smoking History: Never smoked Have you smoked in the past 12 months: No Number of Cigarettes Smoked Daily: 10 If you are a former smoker, when did you quit?: 2 YEARS 'Breaking Loose' booklet given: 11/01/16 Hx Alcohol Use: Yes (RARE) Drug/Substance Use Hx: No Substance Use Type: None *Physical Exam - Vital Signs Last Vital Signs Temp Pulse Resp BP Pulse Ox 97.4 F L 78 18 155/91 99 12/24/18 01:18 12/24/18 01:18 12/24/18 01:18 12/24/18 01:18 12/24/18 01:18 Moderate Sedation - Procedure Monitoring Vital Signs: Procedure Monitoring Vital Signs Temperature 97.4 F L 12/24/18 01:18 Pulse Rate 78 12/24/18 01:18 Respiratory Rate 18 12/24/18 01:18 Blood Pressure 155/91 12/24/18 01:18 O2 Sat by Pulse Oximetry (%) 99 12/24/18 01:18 *DC/Admit/Observation/Transfer Diagnosis at time of Disposition: Hypertension Qualifiers: Hypertension type: essential hypertension Qualified Code(s): I10 - Essential ( primary) hypertension - Discharge Dispostion Disposition: HOME Condition at time of disposition: Stable Decision to Admit order: No - Referrals - Patient Instructions Additional Instructions: Return to the emergency department immediately with ANY new, persistent or worsening symptoms. Continue any medications as previously prescribed by your physician. You should follow up with your primary doctor as soon as possible regarding today's emergency department visit. . Please make sure your doctor reviews the results of your emergency evaluation. Thank you for coming to the Emergency Department today for your care. It was a pleasure to see you today. Please note that your evaluation is INCOMPLETE until you follow-up with your doctor. - Post Discharge Activity
--- NOTE | 2018-12-24 11:05 | EKG ---
Test Reason : Blood Pressure : / mmHG Vent. Rate : 067 BPM Atrial Rate : 067 BPM P-R Int : 186 ms QRS Dur : 088 ms QT Int : 370 ms P-R-T Axes : 027 024 029 degrees QTc Int : 390 ms NORMAL SINUS RHYTHM NORMAL ECG WHEN COMPARED WITH ECG OF 01-DEC-2018 14:52, QT HAS SHORTENED Confirmed by MD GUILLE, SALOMON ([id number]) on 12/24/2018 11:04:47 AM Referred By: DR CANTU Confirmed By:SALOMON HAN MD
== END 2018-12-24 01:54 | disposition home or self-care (01) ==
LOC: FER 01:14
DX: I10 Essential (primary) hypertension (principal); K21.9 Gastro-esophageal reflux disease without esophagitis; Z87.891 Personal history of nicotine dependence; E66.01 Morbid (severe) obesity due to excess calories; Z68.43 Body mass index [BMI] 50.0-59.9, adult
CPT/HCPCS: 93005; 99281-25

== ENCOUNTER 2019-05-03 11:30 | Emergency (ER) | payer OTHER ==
--- NOTE | 2019-05-03 11:34 | PDOC ---
History of Present Illness - General Chief Complaint: Pain Stated Complaint: RIGHT FOOT PAIN Time Seen by Provider: 05/03/19 11:32 History Source: Patient Exam Limitations: No Limitations - History of Present Illness Initial Comments: 05/03/19 12:28 38 year old female with PMHx of obesity, HTN, GERD presenting with right foot/ great toe pain and swelling and redness x 3-4 days. She woke up earlier this week from bed with redness and increasing pain to her rt great toe and extending to the inner foot. Associated with tingling in her toe, no weakness or numbness. Foot pain worse with ambulation and bearing weight but able to ambulate. admits to drinking beer regularly, last intake of 1 can beer 2 days ago. denies consuming deli meats/salty foods/seafood. Denies trauma or strenuous activity. Has been using icy/hot patches without relief. Has not been able to take nsaids due to HTN issues previously, which is better controlled with antihypertensives currently. No h/o gout or rheumatoid arthritis. Previously similar sx with redness and swelling to her rt ankle, but no clear etiology distinguished. Pt also endorses urinary frequency x 3-4 days, but no dysuria, hematuria, urgency or abdominal pain. Denies fever, chills, chest pain, SOB, palpitations, dizziness, weakness, N, V, D, abdominal pain, leg swelling, No new changes in medications. PMD Dr Vo 05/03/19 12:44 Past History - Past Medical History Allergies/Adverse Reactions: Allergies Allergy/AdvReac Type Severity Reaction Status Date / Time No Known Allergies Allergy Verified 11/26/18 15:29 Home Medications: Ambulatory Orders Labetalol HCl 100 mg PO BID 02/18/18 Amlodipine Besylate 10 mg PO DAILY 11/13/18 Pantoprazole Sodium [Protonix -] 20 mg PO DAILY PRN 11/13/18 Sucralfate [Carafate -] 1 gm PO DAILY PRN 11/23/18 Losartan Potassium 25 mg PO BID 12/24/18 Hydralazine HCl 75 mg PO BID 05/03/19 Oxycodone HCl 10 mg PO QID PRN #10 tablet MDD 4 05/03/19 COPD: No GI Disorders: Yes (GERD) HTN: Yes - Surgical History Cardiac Surgery: Yes - Suicide/Smoking/Psychosocial Hx Smoking History: Never smoked Have you smoked in the past 12 months: No Number of Cigarettes Smoked Daily: 10 If you are a former smoker, when did you quit?: 2 YEARS 'Breaking Loose' booklet given: 11/01/16 Hx Alcohol Use: Yes (RARE) Drug/Substance Use Hx: No Substance Use Type: None Review of Systems - Review of Systems Able to Perform ROS?: Yes Comments:: 05/03/19 12:28 Constitutional: no fevers or chills. Abdomen: no abdominal pain Genitourinary: +urinary frequency. No hematuria, urgency or dysuria. MUSCULOSKELETAL: +foot/toe pain and swelling. +joint pain and swelling. No muscle pain/arthralgias. Back: no back pain SKIN: no skin changes, no discharge, no rash. No wounds. +redness Hematologic: no easy bruising/bleeding. NEUROLOGIC: No weakness, numbness. +tingling Allergic/Immunologic: no allergies All other systems reviewed and negative, or as documented in HPI. 05/03/19 13:34 *Physical Exam - Physical Exam Comments: 05/03/19 12:28 General: NAD, well appearing Abdomen: soft, obese, nonotender. Vascular: 2+ DP pulses symmetric and equal. Back: no midline tenderness, no stepoffs, FROM MSK: notable for soft compartments, Cap refill <2 sec. Proximal and distal strength 5/5, padded box sewer strength 5/5 - equal and symmetric. Plantar flexion and dorsiflexion 5/5. FROM. Sensation grossly intact to light touch. No calf tenderness. Tender to the right great toe MTP joint, no palp effusion or crepitus. Neuro: alert, no focal neurologic deficits Skin: color normal color, warm and well perfused. Cap refill <2 sec. 2+ DP pulses bilaterally. +mild erythema to the inner right foot, tender to palpation , no crepitus, no wounds or drainage. ED Treatment Course - RADIOLOGY Radiology Studies Ordered: Category Date Time Status ANKLE & FOOT-RIGHT* [RAD] Stat Radiology 05/03/19 11:32 Ordered Medical Decision Making - Medical Decision Making 05/03/19 12:30 Vital Signs Temp Pulse Resp BP Pulse Ox 98.7 F 84 16 128/73 99 05/03/19 11:31 05/03/19 11:31 05/03/19 11:31 05/03/19 11:31 05/03/19 11:31 hpi as documented VS reviewed, wnl. afebrile, nontoxic. DDX. arthritis, fracture, foot/toe sprain, gouty arthritis, inflammatory arthritis, RA, effusion, clinically doubt septic arthritis/joint UA neg for infection, neg preg test Xray grossly normal, alignment of ankle and foot wnl, no subtle fx. Analgesia with tylenol avoiding NSAIDS due to issues with BP control rest ice and elevation. discussed possibility of steroids, but due to risks of HTN/hyperglycemia, will decline for now per patient no indication to tap joint, no significant palp effusion. dietary modifications, hydration, analgesia regimen Will discharge patient with a short course of opiates. Went over the risks of the medication. Advised patient to not mix with other products containing acetaminophen, to not combine with alcohol, or other illicit drugs, to not drive or operate machinery, and to refrain from any activity that will require complete attention while taking this medication. Pt to be discharged in stable condition. Patient made aware of clinical impression, treatment recommendations and disposition plan, return precautions discussed (including but not limited to new or persistent/worsening symptoms, pain, fevers, or signs of infection, chest pain, respiratory distress, inability to tolerate oral intake, dehydration, syncope, or neurologic changes) . Follow up with PMD Dr Vo and/or specialist as recommended, follow up information provided, take medications as instructed for duration of time. continue with supportive care, avoid triggers and precipitants. All questions answered to patient's satisfaction and expressed understanding and comfort with this. At the time of discharge, the patient is alert, clinically improved, tolerating po and verbalizes understanding of instructions, satisfied with the care received and felt comfortable with the plan. Patient does not suffer from an acute life-threatening medical condition at this time and is safe for outpatient follow-up. 05/03/19 12:44 05/03/19 13:11 05/03/19 13:22 *DC/Admit/Observation/Transfer Diagnosis at time of Disposition: Arthralgia - Discharge Dispostion Disposition: HOME Condition at time of disposition: Good Decision to Admit order: No - Prescriptions Prescriptions: Oxycodone HCl 10 mg PO QID PRN #10 tablet MDD 4 PRN Reason: Severe Pain - Referrals Referrals: Dianne Bal MD [Primary Care Provider] - Stepanian,Berdj, DPM [Staff Physician] - Hebert Nicole MD [Staff Physician] - - Patient Instructions Printed Discharge Instructions: DI for Arthralgia, DI for Foot Pain Additional Instructions: you were evaluated in the department for your right foot/toe pain this could be arthritis, inflammation, rheumatoid arthritis or gouty arthritis, this is unlikely infectious. no procedure is indicated at this time your xray was grossly within normal limits. you may take tylenol for the pain; avoid any anti inflammatories for now as this can derange your blood pressure. Please take one tablet of OXYCODONE every 6 hours, as needed for SEVERE pain. Please do not take this medication unless you absolutely need it, it is very addictive. Please do not drive, operate heavy machinery or make important decisions while on this medication, it can cloud your judgement. RICE rest ice elevate the affected extremity Rest, Ice (20 minutes at a time, 3 times a day), Compression (KOREY wrap or splint ), Elevation (above the heart). Follow up with your primary care physician in 1 week if symptoms persist, or with orthopedics if needed. Follow up with primary doctor/specialist services provided as well. podiatry referrals given. This should heal over the next 3-5 days. If you have any worsening of symptoms or any other concerns please return to the ED immediately. Return if worsening symptoms including fevers, headache, vomiting, visual or hearing disturbances, abdominal pain, chest pain, shortness of breath, syncope, dehydration, inability to take things by mouth/vomiting, altered mental status, or worsening concerning symptoms. - Post Discharge Activity
[2019-05-03 11:43] VITALS: BP 128/73; PULSE 84; TEMP 98.7; BMI 52.9
[2019-05-03] MEDS ORDERED: ACETAMINOPHEN 325 MG TABLET (FP) PO ONE (11:55)
[2019-05-03] MEDS ORDERED: ACETAMINOPHEN 325 MG TABLET (FP) ONE (12:31)
[2019-05-03 13:10] LABS: EPITHELIAL CELLS MODERATE /hpf
== END 2019-05-03 13:44 | disposition home or self-care (01) ==
LOC: FER 11:30
DX: M25.50 Pain in unspecified joint (principal); I10 Essential (primary) hypertension; K21.9 Gastro-esophageal reflux disease without esophagitis; Z87.891 Personal history of nicotine dependence
CPT/HCPCS: 73610-TC-RT-FY; 73630-TC-RT-FY; 81003; 81015; 84703; 87086; 99283-25

== ENCOUNTER 2019-09-08 18:33 | Emergency (ER) | payer OTHER ==
[2019-09-08 19:02] VITALS: BP 146/80; PULSE 84; TEMP 98.1; BMI 52.9
--- NOTE | 2019-09-08 19:58 | PDOC ---
Documentation entered by Susu Schulz SCRIBE, acting as scribe for Ashish Culp MD. Ashish Culp MD: This documentation has been prepared by the denisibe, Susu Schulz SCRIBE, under my direction and personally reviewed by me in its entirety. I confirm that the documentation accurately reflects all work, treatment, procedures, and medical decision making performed by me. History of Present Illness - General Chief Complaint: Respiratory Stated Complaint: COUGH Time Seen by Provider: 09/08/19 19:15 History Source: Patient Exam Limitations: No Limitations - History of Present Illness Initial Comments: 09/08/19 19:41 Patient is a 38 year old female who presents to the ED with 3-4 days of chest soreness. Patient also complains of an intermediate cough. Patient describes the pain as dull and nonradiating. Patient has been non compliant with her medication. She denies recent fevers, chills, headache or dizziness. She denies recent nausea, vomit, diarrhea or constipation PAST MEDICAL HISTORY: HLD, GERD, morbidly obese. PAST SURGICAL HISTORY: 2 C-sections FAMILY HISTORY: no pertinent history SOCIAL HISTORY: Pt lives with family and is unemployed. MEDICATIONS: reviewed ALLERGIES: NKA General: No fevers or chills, no weakness, no weight loss HEENT: No change in vision. No sore throat,. No ear pain CardioVascular: +chest pain, no shortness of breath Respiratory:No cough, or wheezing. Gastrointestinal: no nausea, vomiting, diarrhea or constipation, No rectal bleeding Genitourinary: No dysuria, hematuria, or frequency Musculoskeletal: No joint or muscle pain or swelling Neurologic: No headache, vertigo, dizziness or loss of consciousness Psychiatric: nor depression Skin: No rashes or easy bruising Endocrine: no increased thirst or abnormal weight change Allergic: no skin or latex allergy All other systems reviewed and normal General: +morbidly obese, no acute distress HEENT: Throat: Normal, tonsils normal, no erythema or exudate Neck: Supple, no meningeal signs, no lymphadenopathy Eyes::Pupils equal reactive and round, extraocular motion intact Chest: Nontender to palpation Cardiac: S1-S2 normal, regular rate and rhythm, no murmurs rubs or gallops Respiratory: Lungs clear to auscultation bilateral Abdomen: Soft, nondistended, normal bowel sounds, nontender to palpation diffusely Extremities: Warm, dry, no cyanosis, clubbing, or edema 09/08/19 19:45 Assessment and plan: This is a 38-year-old morbidly obese female who has history of gastroesophageal reflux disease who has not been taking her medication because she ran out of it. Patient over the last several days has had increased symptoms of dyspepsia with burning radiating up into her esophagus coughing intermittently and discomfort in her epigastric region. Patient had a normal exam EKG showed normal sinus rhythm at a rate of [address]-T wave changes normal EKG. Patient discharged with prescriptions for her Zantac and Protonix. Patient has a GI appointment for 2 weeks from now and will follow-up with her primary care doctor this week Past History - Past Medical History Allergies/Adverse Reactions: Allergies Allergy/AdvReac Type Severity Reaction Status Date / Time No Known Allergies Allergy Verified 09/04/19 17:28 Home Medications: Ambulatory Orders Labetalol HCl 100 mg PO BID 02/18/18 Amlodipine Besylate 10 mg PO DAILY 11/13/18 Pantoprazole Sodium [Protonix -] 20 mg PO DAILY PRN 11/13/18 Sucralfate [Carafate -] 1 gm PO DAILY PRN 11/23/18 Losartan Potassium 25 mg PO DAILY 12/24/18 Hydralazine HCl 75 mg PO BID 05/03/19 Ranitidine HCl 300 mg PO HS PRN 09/04/19 Pantoprazole Sodium [Protonix -] 20 mg PO DAILY PRN #30 tablet.ec 09/08/19 Ranitidine HCl 300 mg PO HS PRN #30 tablet 09/08/19 Anemia: No Asthma: No Cancer: No Cardiac Disorders: No CVA: No COPD: No CHF: No Dementia: No Diabetes: No GI Disorders: Yes (GERD) Disorders: No HTN: Yes Hypercholesterolemia: No Liver Disease: No Seizures: No Thyroid Disease: No - Surgical History Cardiac Surgery: Yes - Psycho Social/Smoking Cessation Hx Smoking History: Never smoked Have you smoked in the past 12 months: No Number of Cigarettes Smoked Daily: 10 If you are a former smoker, when did you quit?: 2 YEARS 'Breaking Loose' booklet given: 11/01/16 Hx Alcohol Use: No Drug/Substance Use Hx: No Substance Use Type: Marijuana Hx Substance Use Treatment: No *Physical Exam - Vital Signs Last Vital Signs Temp Pulse Resp BP Pulse Ox 98.1 F 84 16 146/80 99 09/08/19 18:34 09/08/19 18:34 09/08/19 18:34 09/08/19 18:34 09/08/19 18:34 Discharge - Discharge Information Problems reviewed: Yes Clinical Impression/Diagnosis: GERD with esophagitis Condition: Good Disposition: HOME - Admission No - Additional Discharge Information Prescriptions: Pantoprazole Sodium [Protonix -] 20 mg PO DAILY PRN #30 tablet.ec PRN Reason: Dyspepsia Ranitidine HCl 300 mg PO HS PRN #30 tablet PRN Reason: Dyspepsia - Follow up/Referral Referrals: Dianne Bal MD [Primary Care Provider] - - Patient Discharge Instructions Additional Instructions: Get your prescription for the Protonix and Zantac and take as prescribed. Keep your appointment with your GI doctor. Return to the emergency department immediately with ANY new, persistent or worsening symptoms. Continue any medications as previously prescribed by your physician. You should follow up with your primary doctor as soon as possible regarding today's emergency department visit. . Please make sure your doctor reviews the results of your emergency evaluation. Thank you for coming to the Emergency Department today for your care. It was a pleasure to see you today. Please note that your evaluation is INCOMPLETE until you follow-up with your doctor. - Post Discharge Activity
--- NOTE | 2019-09-10 11:58 | EKG ---
Test Reason : Blood Pressure : / mmHG Vent. Rate : 073 BPM Atrial Rate : 073 BPM P-R Int : 182 ms QRS Dur : 076 ms QT Int : 380 ms P-R-T Axes : 065 029 046 degrees QTc Int : 418 ms NORMAL SINUS RHYTHM NORMAL ECG WHEN COMPARED WITH ECG OF 24-DEC-2018 01:30, NO SIGNIFICANT CHANGE WAS FOUND Confirmed by SIL GARG MD ([id number]) on 09/10/2019 11:57:51 AM Referred By: Confirmed By:SIL GARG MD
== END 2019-09-08 20:11 | disposition home or self-care (01) ==
LOC: FER 18:33
DX: K21.0 Gastro-esophageal reflux disease with esophagitis (principal); Z87.891 Personal history of nicotine dependence; I10 Essential (primary) hypertension; E78.5 Hyperlipidemia, unspecified; E66.01 Morbid (severe) obesity due to excess calories; Z68.43 Body mass index [BMI] 50.0-59.9, adult
CPT/HCPCS: 93005; 99281-25

== ENCOUNTER 2019-09-10 10:17 | Day surgery (SDC) | payer OTHER ==
[2019-09-04 17:38] VITALS: BMI 53.6
--- NOTE | 2019-09-10 07:24 | HP ---
History & Physical Update - History History: No Change - Physical Physical: No Change - Assessment Assessment: No Change - Plan Plan: No Change (No change in HP)
[~2019-09-10 10:17] MED LIST: ACETAMINOPHEN 325 MG TABLET (FP) PO PRN; IBUPROFEN 400 MG TABLET (FP) PO PRN
[2019-09-10 11:07] VITALS: BP 119/73; PULSE 70; TEMP 98.6
[2019-09-10] MEDS ORDERED: PROPOFOL 20 ML ONE ×2 (12:11)
[2019-09-10] MEDS ORDERED: MIDAZOLAM HCL 2 MG/2 ML SINGLE DOSE VIAL ONE (12:11)
== END 2019-09-10 12:51 | disposition home or self-care (01) ==
LOC: JASU-SURG 10:17
PROVIDERS: ATTEND Obstetrics & Gynecology
DX: Z53.8 Procedure and treatment not carried out for other reasons (principal)
CPT/HCPCS: 36415; 84703; 86850; 86900; 86901

== ENCOUNTER 2019-10-15 08:39 | Day surgery (SDC) | payer OTHER ==
[2019-10-11 10:37] VITALS: BMI 52.9
--- NOTE | 2019-10-15 07:12 | HP ---
History & Physical Update - History History: No Change - Physical Physical: No Change - Assessment Assessment: No Change - Plan Plan: No Change (No change in HP)
--- NOTE | 2019-10-15 07:15 | OP ---
Operative Note - Note: Operative Date: 10/15/19 Pre-Operative Diagnosis: Cervical dysplasia. HPV Operation: LEEP Post-Operative Diagnosis: Same as Pre-op Anesthesia: General Estimated Blood Loss (mls): 30
[2019-10-15] MEDS ORDERED: MIDAZOLAM HCL 2 MG/2 ML SINGLE DOSE VIAL ONE (09:37)
[2019-10-15] MEDS ORDERED: PROPOFOL 20 ML ONE ×4 (09:37→10:12)
[2019-10-15] MEDS ORDERED: SUCCINYLCHOLINE CHLORIDE 200 MG/10 ML SYRINGE ONE (09:39)
[2019-10-15] MEDS ORDERED: KETOROLAC TROMETHAMINE 30 MG/1 ML VIAL ONE (10:12)
[2019-10-15] MEDS ORDERED: ONDANSETRON 4 MG/2 ML VIAL IVPUSH PRN (10:44)
[2019-10-15] MEDS ORDERED: oxyCODONE HCL 5 MG TABLET PO PRN (10:44)
[2019-10-15] MEDS ORDERED: LACTATED RINGERS SOLUTION 1,000 ML IV SCH (10:45)
[2019-10-15] MEDS ORDERED: IBUPROFEN 400 MG TABLET (FP) PO ONE (12:15)
[2019-10-15] MEDS ORDERED: ACETAMINOPHEN 325 MG TABLET (FP) ONE (12:17)
[2019-10-15] MEDS ORDERED: ACETAMINOPHEN 325 MG TABLET (FP) PO ONE (12:21)
[2019-10-15 13:33] VITALS: BP 145/87; PULSE 67; TEMP 97.4
--- NOTE | 2019-10-16 10:50 | OP ---
DATE OF OPERATION: 10/15/2019 PREOPERATIVE DIAGNOSIS: Cervical dysplasia and human papilloma virus. OPERATION: Large loop electrosurgical excision procedure . PREOPERATIVE DIAGNOSIS: Cervical dysplasia and human papilloma virus. SURGEON: Gabriela Winchester MD DESCRIPTION OF PROCEDURE: The patient was taken to the operating room, placed in the dorsal lithotomy position, prepped and draped in the usual sterile fashion. A time-out was performed in accordance with hospital regulation. A speculum was placed in the vagina. Cautery was then used to cut the ectocervix of the patient, followed by endocervical removal. Cautery and cutting of the cervix was done for hemostasis, and hemostasis was achieved. Estimated blood loss was 30 mL. All instruments were then removed. Monsel was placed on the cervix. Lugol had been placed prior to the LEEP as well. GABRIELA WINCHESTER M.D. [id number]
--- NOTE | 2019-10-16 14:32 | PATH ---
Surgical Pathology Report Patient Name: MUSTAPHA BERNSTEIN [facility]. Rec. #: [id number] /Age/Gender: 1980 (Age: 38) / F Account: [id number] Location: [facility] SURGICAL Taken: 10/15/2019 Received: 10/15/2019 Reported: 10/16/2019 Physicians: Gabriela Winchester M.D. Specimen(s) Received A: ECTOCERVIX B: ENDOCERVIX Clinical History Cervical dysplasia Final Diagnosis A. ECTOCERVIX BIOPSY: KHOA 3 (CERVICAL INTRAEPITHELIAL NEOPLASIA, GRADE 3) WITH GLANDULAR INVOLVEMENT. KHOA 3 PRESENT AT THE CAUTERIZED ENDOCERVICAL MARGIN. B. ENDOCERVIX BIOPSY: CERVICAL TISSUE WITH KHOA 3 (CERVICAL INTRAEPITHELIAL NEOPLASIA, GRADE 3). MARGINS ARE NEGATIVE FOR DYSPLASIA. Electronically Signed Isabella Escobar M.D. Gross Description The A. Received in formalin labeled "ectocervix biopsy," is a 1.4 x 0.8 x 0.8 cm yeung, unoriented portion of soft tissue, consistent with a portion of cervix. The specimen is inked in blue and serially sectioned. Separately received within the same container is a 2.8 x 2.5 x 0.4 cm aggregate of blood-tinged mucus. The specimen is entirely submitted in 3 cassettes as follows: [id number] sectioned cervix; 3-mucus. B. Received in formalin labeled "endocervix biopsy," is a 1.7 x 1.0 x 0.2 cm irregular, unoriented portion of soft tissue, consistent with a portion of cervix. The specimen is inked blue, serially sectioned and entirely submitted in 2 cassettes. DL/10/15/2019 saudi/10/15/2019
== END 2019-10-15 13:56 | disposition home or self-care (01) ==
LOC: JASU-SURG 08:39
PROVIDERS: ATTEND Obstetrics & Gynecology
PROC: 0UBC7ZX Excision of Cervix, Via Natural or Artificial Opening, Diagnostic (ICD-10-PCS; principal; 2019-10-15 09:30)
DX: D06.9 Carcinoma in situ of cervix, unspecified (principal)
CPT/HCPCS: 36415; 84703; 86850; 86900; 86901; 88307-TC; 94760

== ENCOUNTER 2021-02-20 15:58 | Emergency (ER) | payer OTHER ==
[2021-02-20 16:03] VITALS: BP 92/64; PULSE 82; TEMP 99.1; BMI 51.0
[2021-02-20] MEDS: IBUPROFEN 400 MG TABLET (FP) PO ONE ×2 (16:11→16:13)
[2021-02-20] MEDS ORDERED: IBUPROFEN 400 MG TABLET (FP) PO ONE (16:11)
[2021-02-20] MEDS ORDERED: MAG HYDROX/AL HYDROX/SIMETH 30 ML UNIT-DOSE CUP PO ONE (16:32)
[2021-02-20] MEDS ORDERED: MAG HYDROX/AL HYDROX/SIMETH 30 ML UNIT-DOSE CUP ONE (16:38)
== END 2021-02-20 17:26 | disposition home or self-care (01) ==
LOC: FER 15:58
DX: R10.13 Epigastric pain (principal)
CPT/HCPCS: 93005; 99283-25

== ENCOUNTER 2022-05-18 14:44 | Emergency (ER) | payer OTHER ==
[2022-05-18 15:16] VITALS: BP 127/69; PULSE 64; RESP 16; TEMP 99.5; BMI 45.3
[2022-05-18] MEDS ORDERED: morphine CARPU-JECT 2 MG/1 ML DISP.SYRIN IM ONE ×2 (16:54→17:00)
[2022-05-18] MEDS ORDERED: DEXAMETHASONE SOD PHOSPHATE 10 MG/1 ML VIAL IM ONE (16:54)
[2022-05-18] MEDS ORDERED: morphine SULFATE 4 MG/ML VIAL ONE (17:00)
[2022-05-18] MEDS ORDERED: DEXAMETHASONE SOD PHOSPHATE 10 MG/1 ML VIAL ONE (17:00)
== END 2022-05-18 17:38 | disposition home or self-care (01) ==
LOC: FER 14:44
PROC: 3E0233Z Introduction of Anti-inflammatory into Muscle, Percutaneous Approach (ICD-10-PCS; principal; 2022-05-18)
PROC: 3E023NZ Introduction of Analgesics, Hypnotics, Sedatives into Muscle, Percutaneous Approach (ICD-10-PCS; 2022-05-18)
DX: M54.32 Sciatica, left side (principal)
CPT/HCPCS: 72100-TC-FY; 99284-25; J1100

== ENCOUNTER 2022-05-24 19:45 | Emergency (ER) | payer OTHER ==
[2022-05-24 20:07] VITALS: BP 146/84; PULSE 58; RESP 18; BMI 46.6
== END 2022-05-24 21:48 | disposition home or self-care (01) ==
LOC: FER 19:45
DX: M54.30 Sciatica, unspecified side (principal)
CPT/HCPCS: 93971-TC; 99284-25

== ENCOUNTER 2022-05-28 04:16 | Day surgery (SDC) | payer OTHER ==
[2022-05-24 11:37] VITALS: BMI 42.0
[2022-05-28 09:23] VITALS: RESP 20
[2022-05-28] MEDS ORDERED: BUPIVACAINE HCL/PF 0.5% (5MG/ML) 10 ML VIAL ONE (09:30)
[2022-05-28] MEDS ORDERED: LIDOCAINE HCL 1%, 10 MG/ML (20ML VIAL) ONE (09:30)
[2022-05-28] MEDS ORDERED: PROPOFOL 20 ML ONE (09:34)
[2022-05-28] MEDS ORDERED: MIDAZOLAM HCL 2 MG/2 ML SINGLE DOSE VIAL ONE (09:34)
[2022-05-28] MEDS ORDERED: LIDOCAINE HCL 2% 100 MG/5 ML DISP.SYRIN ONE (09:34)
[2022-05-28] MEDS ORDERED: DEXAMETHASONE SOD PHOSPHATE 4 MG/1 ML VIAL ONE (10:21)
[2022-05-28] MEDS ORDERED: ONDANSETRON 4 MG/2 ML VIAL ONE (10:21)
[2022-05-28] MEDS ORDERED: KETOROLAC TROMETHAMINE 30 MG/1 ML VIAL ONE (10:21)
[2022-05-28] MEDS ORDERED: ceFAZolin SODIUM 1 GM VIAL IVPB ONE (10:25)
[2022-05-28] MEDS ORDERED: LIDOCAINE HCL 1%, 10 MG/ML (20ML VIAL) NR ONE ×2 (10:34)
[2022-05-28] MEDS ORDERED: BUPIVACAINE HCL/PF 0.5% (5MG/ML) 10 ML VIAL IJ ONE ×2 (10:34)
[2022-05-28] MEDS ORDERED: ONDANSETRON *ODT* 4 MG TABLET SL ONE (12:23)
[2022-05-28 13:40] VITALS: BP 112/63; PULSE 58; TEMP 982
== END 2022-05-28 13:30 | disposition home or self-care (01) ==
LOC: JASU-SURG 04:16
PROVIDERS: ATTEND Surgery
PROC: 0HB5XZZ Excision of Chest Skin, External Approach (ICD-10-PCS; principal; 2022-05-28 10:33)
DX: L72.3 Sebaceous cyst (principal)
CPT/HCPCS: 88304-TC

== ENCOUNTER 2022-10-27 16:24 | Emergency (ER) | payer OTHER ==
[2022-10-27 16:51] VITALS: BP 132/72; PULSE 74; RESP 18; TEMP 98.9; BMI 45.7
[2022-10-27] MEDS ORDERED: ACETAMINOPHEN 325 MG TABLET (FP) PO ONE (17:03)
[2022-10-27] MEDS ORDERED: ACETAMINOPHEN 325 MG TABLET (FP) ONE (17:52)
== END 2022-10-27 18:33 | disposition home or self-care (01) ==
LOC: FER 16:24
DX: S62.306A Unspecified fracture of fifth metacarpal bone, right hand, initial encounter for closed fracture (principal); V49.40XA Driver injured in collision with unspecified motor vehicles in traffic accident, initial encounter
CPT/HCPCS: 73130-TC-RT-FY; 99283-25

== ENCOUNTER 2023-02-21 23:28 | Emergency (ER) | payer OTHER ==
[2023-02-21 23:43] VITALS: BP 137/73; PULSE 57; RESP 18; TEMP 97.7; BMI 43.2
== END 2023-02-22 00:03 | disposition home or self-care (01) ==
LOC: FER 23:28
DX: M79.605 Pain in left leg (principal); L70.9 Acne, unspecified
CPT/HCPCS: 99282-25

== ENCOUNTER 2023-09-19 21:34 | Emergency (ER) | payer OTHER ==
[2023-09-19 21:48] VITALS: BP 133/73; PULSE 68; RESP 16; TEMP 98.4; BMI 42.3
== END 2023-09-20 01:04 | disposition home or self-care (01) ==
LOC: FER 21:34
DX: R51.9 Headache, unspecified (principal)
CPT/HCPCS: 70486-TC; 99284-25

== ENCOUNTER 2024-05-03 16:44 | Emergency (ER) | payer OTHER ==
[2024-05-03 17:18] VITALS: BP 122/81; PULSE 55; RESP 16; TEMP 98.2; BMI 43.4
== END 2024-05-03 19:03 | disposition home or self-care (01) ==
LOC: FER 16:44
DX: R51.9 Headache, unspecified (principal); M54.2 Cervicalgia; W18.2XXA Fall in (into) shower or empty bathtub, initial encounter
CPT/HCPCS: 70450-TC; 72125-TC; 99284-25

== ENCOUNTER 2025-04-15 19:07 | Emergency (ER) | payer OTHER ==
[2025-04-15 19:26] VITALS: BP 144/70; PULSE 62; RESP 15; BMI 43.4
[2025-04-15] MEDS ORDERED: DIPHTH,PERTUSS(ACELL),TET 0.5 ML DISP.SYRIN IM ONE (19:29)
[2025-04-15] MEDS: DIPHTH,PERTUSS(ACELL),TET 0.5 ML DISP.SYRIN IM ONE (19:35)
== END 2025-04-15 19:38 | disposition home or self-care (01) ==
LOC: FER 19:07
PROC: 3E0234Z Introduction of Serum, Toxoid and Vaccine into Muscle, Percutaneous Approach (ICD-10-PCS; principal; 2025-04-15)
DX: R20.2 Paresthesia of skin (principal); Z23 Encounter for immunization; W45.0XXA Nail entering through skin, initial encounter
CPT/HCPCS: 90471; 90715; 99284-25